=== PATIENT | male | born 1930 | race Caucasian/White ===

== ENCOUNTER 2019-08-08 13:41 | Inpatient (IN) | payer MEDICARE, OTHER ==
[~2019-08-08] VITALS: Ht 175.3 cm; Wt 73.0 kg
--- OUTSIDE RECORDS SUMMARY | 2019-08-08 13:53 | XMS REPORT | Clinical Summary ---
Author Author [facility] Address Unknown Phone Unavailable Care Team Providers Care Residential Tech Name Role Phone Kari Clay DO PCP [phone] Allergies Comments Active Allergy Reactions Severity Noted Date Metoclopramide Hcl 05/19/2018 Medications End Date Status Medication Sig Dispensed Refills Start Date Active omeprazole (PRILOSEC) 10 Take 10 mg by 0 MG capsule mouth daily. Active dilTIAZem (CARDIZEM) 30 Take 30 mg by 0 MG tablet mouth 4 (four) times daily. Active simvastatin (ZOCOR) 40 MG Take 40 mg by 0 tablet mouth nightly. Active predniSONE (DELTASONE) 5 Take 5 mg by 0 MG tablet mouth daily. Active temazepam (RESTORIL) 15 Take 15 mg by 0 mg capsule mouth every night as needed for Sleep. Active traMADol (ULTRAM) 50 mg Take 50 mg by 0 tablet mouth every 6 (six) hours as needed for Pain. Active hydrALAZINE (APRESOLINE) Take 10 mg by 0 10 MG tablet mouth 3 (three) times daily. Active rivaroxaban (XARELTO) 10 Take by mouth 0 mg Tab tablet daily with dinner. Active donepezil (ARICEPT) 10 MG Take 10 mg by 0 tablet mouth nightly. Active bimatoprost (LUMIGAN) Place 1 drop 0 0.01 % Drop ophthalmic into both solution eyes nightly. Active ranitidine (ZANTAC) 75 MG Take 75 mg by 0 tablet mouth 2 (two) times daily. Active Problems Not on file Social History Date Tobacco Use Types Packs/Day Years Used Former Smoker Smokeless Tobacco: Never Used Alcohol Use Drinks/Week oz/Week Comments No Alcohol Habits Answer Date Recorded How often do you have a drink containing alcohol? Never 05/19/2018 How many drinks containing alcohol do you have on No t asked a typical day when you are drinking? How often do you have six or more drinks on one Not asked occasion? Sex Assigned at Date Recorded Not on file Industry Job Start Date Occupation Not on file Not on file Not on file Travel End Travel History Travel Start No recent travel history available. Last Filed Vital Signs Not on file Plan of Treatment Not on file Results Not on fileafter 08/07/2018 Insurance Payer Benefit Subscriber ID Type Phone Address Plan / Group MEDICARE MEDICARE A xxxxxxxxxxx Medicare B [employer] CIGNA xxxxxxxxxxx [facility] Contracted NG ALL [phone]
--- OUTSIDE RECORDS SUMMARY | 2019-08-08 13:54 | XMS REPORT | Continuity of Care Document ---
Author Author [facility] Organization [facility] Address [address] [address] Phone tel Care Team Providers Care Technician [employer]mar[employer] Cable Equipment Name Role Phone NOLOCAL, CARE DOC PRIMARY PCP Unavailable Allergies, Adverse Reactions, Alerts Allergen Type Severity Reaction Last Updated Verified Status Metoclopramide Allergy Moderate TREMORS Yes Activ e Medications Medication Status Dose Units Route Sig Qty Days Start Date End Date Instructions AZITHROMYCIN (AZITHROMYCIN 250 MG TAB) 250 MG TAB Active 250 EVERY DAY @ 0900 3 January 11, 2019 10:18am DONEPEZIL HYDROCHLORIDE (DONEPEZIL 10 MG TAB) 10 MG TAB Active 10 DAILY HOUR OF SLEEP Diltiazem HCl (DILTIAZEM 120 MG TAB (IR)) 120 MG TAB Active 180 EVERY DAY @ 0900 FLUTICASONE PROPIONATE (NASAL) (FLUTICASONE NASAL SPRAY) 50 MCG SPR Active 50 EVERY DAY @ 0900 LEVOFLOXACIN (LEVAQUIN 500 MG TAB) 500 MG TAB Active 500 EVERY DAY @ 0900 5 5 January 11, 2019 10:18am OMEPRAZOLE (OMEPRAZOLE 40 MG CAP) 40 MG CAP Active 40 EVERY DAY @ 0900 Prednisone (PREDNISONE 5 MG TAB) 5 MG TAB Active 5 EVERY D AY @ 0900 QUETIAPINE FUMERATE (QUETIAPINE 25 MG TAB) 25 MG TAB Active 25 AT BEDTIME (2100) Rivaroxaban (XARELTO 15 MG TAB) 15 MG TAB Active 15 DEBORAH RY DAY @ 0900 Simvastatin (ZOCOR 40 MG) 40 MG TAB Active 40 AT BEDTIME (2 100) TIZANIDINE HYDROCHLORIDE (TIZANIDINE 2 MG TAB) 2 MG TAB Active 2 DAILY HOUR OF SLEEP as needed NEEDED FOR MUSCLE SPASMS Temazepam (RESTORIL 15 MG CAPSULE) 15 MG CAP Active 15 AT BEDTIME (2100) Problems Active Problems Medical Problem Onset Date Status Fall against sharp object Active Abrasion of nose Active Fracture of nasal bones Active Cough Active Weakness generalized Active Liver enzyme elevation Active UTI (urinary tract infection) Active RLL pneumonia Active Acute febrile illness Active Vomiting Active Leukocytosis Active Multifocal pneumonia Active Hypoxia Active Respiratory distress Active CHF (congestive heart failure) Active Procedures Procedure Date Performed Status CBCA W/PLT & AUTO DIFFERENTIAL April 11, 2016 completed BNP RAPID April 11, 2016 completed COMPREHENSIVE METABOLIC PANEL April 11, 2016 completed PROTIME April 11, 2016 completed PTT April 11, 2016 completed A1C April 11, 2016 completed AFT, SERUM,TUMOR MARKER* April 11, 2016 completed ALDOLASE* April 11, 2016 completed AMMONIA April 11, 2016 completed AMYLASE April 11, 2016 completed BNP RAPID April 11, 2016 completed CBCA W/PLT & AUTO DIFFERENTIAL April 11, 2016 completed CEA April 11, 2016 completed COLD AGGLUTININ TITER,QUANT April 11, 2016 completed COMPREHENSIVE METABOLIC PANEL April 11, 2016 completed CORTISOL, TOTAL RANDOM April 11, 2016 completed CRP (C-Reactive Protein) April 11, 2016 completed FOLATE,SERUM April 11, 2016 completed FERRITIN April 11, 2016 completed HEPATITIS PANEL.* April 11, 2016 completed IRON April 11, 2016 completed LIPASE April 11, 2016 completed LIPID PANEL April 11, 2016 completed PROTIME April 11, 2016 completed PTT April 11, 2016 completed RETICULOCYTE April 11, 2016 completed STREP PNEUMONIAE AG* April 11, 2016 completed THYROID STIMULATING HORMONE April 11, 2016 completed TOTAL IRON BINDING April 11, 2016 completed SARAHY (Dr. Smith) April 11, 2016 completed CK April 11, 2016 completed BLOOD CULTURE April 12, 2016 completed CBCA W/PLT & AUTO DIFFERENTIAL April 13, 2016 completed COMPREHENSIVE METABOLIC PANEL April 13, 2016 completed COMPREHENSIVE METABOLIC PANEL April 14, 2016 completed CBCA W/PLT & AUTO DIFFERENTIAL April 15, 2016 completed COMPREHENSIVE METABOLIC PANEL April 15, 2016 completed MAGNESIUM April 15, 2016 completed PHOSPHOROUS April 15, 2016 completed PROTIME April 15, 2016 completed COMPREHENSIVE METABOLIC PANEL April 16, 2016 completed CBCA W/PLT & AUTO DIFFERENTIAL January 09, 2019 completed COMPREHENSIVE METABOLIC PANEL January 09, 2019 completed PROTIME January 09, 2019 completed PTT January 09, 2019 completed CARDIAC MARKERS PANEL (ER) January 09, 2019 completed BLOOD CULTURE January 09, 2019 completed BNP RAPID January 09, 2019 completed MAGNESIUM January 09, 2019 completed UA COMPLETE W/CULTURE REFLEX January 09, 2019 completed ARTERIAL BLOOD GASES January 09, 2019 completed BASIC METABOLIC PANEL January 10, 2019 completed CBCA W/PLT & AUTO DIFFERENTIAL January 10, 2019 completed CBCA W/PLT & AUTO DIFFERENTIAL January 11, 2019 completed CHEST 1 VIEW (AP) April 11, [address] ABD & PELVIS W CONTRAST April 11, 2016 active ECHO W SPECTRAL & COLOR DOPLR April 11, [address] CHEST W/O CONTRAST April 11, 2016 active BARIUM SWALLOW MODIFIED April 11, 2016 active L RIBS UNILAT 2 VWS W/PA CXR April 13, 2016 active CHEST 1 VIEW (AP) April 14, 2016 active CHEST 2 VIEWS April 16, 2016 active CHEST 1 VIEW (AP) January 09, 2019 active Relevant Diagnostic Tests and/or Laboratory Data Laboratory Results Test Date/Time Result Interpretation Reference Range Result Co mment Performing Site White Blood Count January 11, 2019 10:52am 10.7 3.8-1 2.1 Main Laboratory, [address] [place] [address] [place] [id number] Red Blood Count January 11, 2019 10:52am 4.47 3.57-5. 67 Main Laboratory, [address] [place] [address] Dr Marshal plasencia [address] Hemoglobin January 11, 2019 10:52am 13.1 11.4-17.1 Main Laboratory, [address] [place] [address] [place] [address] Hematocrit January 11, 2019 10:52am 40.5 33.9-50.9 Main Laboratory, [address] [place] [address] Dr Marshal plasencia 60247 Mean Corpuscular Volume January 11, 2019 10:52am 90.6 81.4-102.7 Main Laboratory, [address] [place] [address] Dr Marshal plasencia 02329 Mean Corpuscular Hemoglobin January 11, 2019 10:52am 29.3 26.3-35.0 Main Laboratory, [address] [place] [address] [place] [address] Mean Corpuscular Hgb Concent Diff January 11, 2019 10:52am 32.3 32.0-36.0 Main Laboratory, [address] [place] [address] [place] [address] Red Cell Distribution Width January 11, 2019 10:52am 14.8 11.8-16.2 Main Laboratory, [address] [place] [address] [place] [address] Platelet Count January 11, 2019 10:52am 168 124-384 Main Laboratory, [address] [place] [address] [place] [address] Mean Platelet Volume January 11, 2019 10:52am 9.5 6. 6-10.2 Main Laboratory, [address] [place] [address] [place] [address] Granulocytes (%) January 11, 2019 10:52am 74.4 39.5-7 8.1 Main Laboratory, [address] [place] [address] [place] [address] Lymphocytes % January 11, 2019 10:52am 10.6 12.3-46.4 Main Laboratory, [address] [place] [address] [place] [address] Monocytes % January 11, 2019 10:52am 6.4 4.6-14.0 Main Laboratory, [address] [place] [address] [place] [address] Eosinophils % January 11, 2019 10:52am 7.9 0.6-8.8 Main Laboratory, [address] [place] [address] [place] [address] Basophils % January 11, 2019 10:52am 0.7 0.0-2.0 Main Laboratory, [address] [place] [address] [place] [address] Granulocytes # January 11, 2019 10:52am 8.0 1.5-9.5 Main Laboratory, [address] [place] [address] [place] [address] Lymphocytes # January 11, 2019 10:52am 1.1 0.5-5.6 Main Laboratory, [address] [place] [address] [place] [address] Monocytes # January 11, 2019 10:52am 0.7 0.2-1.7 Main Laboratory, [address] [place] [address] [place] [address] Eosinophils # January 11, 2019 10:52am 0.8 0.0-1.1 Main Laboratory, [address] [place] [address] [place] [address] Basophils # January 11, 2019 10:52am 0.1 0.0-0.2 Main Laboratory, [address] [place] [address] [place] [address] Manual Differential January 11, 2019 10:52am NO Main Laboratory, [address] [place] [address] Dr Marshal plasencia 22874 Segmented Neutrophils April 13, 2016 6:31am 93 42 -75 Main Laboratory, [address] [place] [address] Dr Marshal plasencia 80182 Lymphocytes April 13, 2016 6:31am 5 20-51 Main Laboratory, [address] [place] [address] Dr Marshal plasencia 56943 Monocytes April 13, 2016 6:31am 2 2-9 Main Laboratory, [address] [place] [address] Dr Marshal plasencia 39596 Platelet Estimate April 13, 2016 6:31am ADEQUATE ADEQUA TE Main Laboratory, [address] [place] [address] Dr Marshal plasencia 81452 Platelet Morphology April 13, 2016 6:31am NORMAL NORM AL Main Laboratory, [address] [place] [address] Dr Marshal plasencia 99954 Normal RBC Morphology April 13, 2016 6:31am NORMAL NO RMAL Main Laboratory, [address] [place] [address] [place] [address] Reticulocyte Count April 12, 2016 12:11am 3.4 0.52 -3.53 Main Laboratory, [address] [place] [address] Dr Marshal plasencia 37542 Total Iron Binding Capacity April 12, 2016 12:11am 273 261-478 Main Laboratory, [address] [place] [address] [place] [address] Prothrombin Time January 09, 2019 5:00am 19.2 10.0-12 .9 Main Laboratory, [address] [place] [address] [place] [address] INR International Normalized Ratio January 09, 2019 5:00am 1.7 0.91-1.15 THE INR IS TO BE USED ONLY FOR MONITORING ORAL ANTICOAGULANTTHERAPY. INDICATION INR VALUE 1. Prophylaxis of venous thrombosis 2.0-3.0 (high-risk surgery) Treatment of venous thrombosis Treatment of PE Prevention of systemic embolism Tissue heart valves AMI (to prevent systemic embolism) Valvular heart disease Atrial fibrillation Bileaflet mechanical valve in aortic position 2. Mechanical prosthetic heart valves (high risk) 2.5-3.5 Thrombosis and Antiphospholipid syndrome Prevention of recurrent MS Sixth ACCP Consensus Conference on Antithrombotic Therapy,Chest 2001; 119:Supplement 8-21. Main Laboratory, [address] [place] [address] [place] [address] Activated Partial Thromboplast Time January 09, 2019 5:00am 28.2 25.1-36.5 Main Laboratory, [address] [place] [address] [place] [address] Urine Color January 09, 2019 5:37am Colorless YELLOW Main Laboratory, [address] [place] [address] Dr Marshal plasencia 26137 Urine Clarity January 09, 2019 5:37am Clear CLEAR Main Laboratory, [address] [place] [address] [place] [address] Urine Glucose January 09, 2019 5:37am NEGATIVE NEGATIVE Main Laboratory, [address] [place] [address] [place] [address] Urine Bilirubin January 09, 2019 5:37am NEGATIVE NEGATIVE Main Laboratory, [address] [place] [address] [place] [address] Urine Ketones January 09, 2019 5:37am NEGATIVE NEGATIVE Main Laboratory, [address] [place] [address] [place] [address] Urine Specific Conway January 09, 2019 5:37am 1.006 1 .002-1.030 Main Laboratory, [address] [place] [address] [place] [address] Urine Blood January 09, 2019 5:37am LARGE NEGATIVE Main Laboratory, [address] [place] [address] [place] [address] Urine pH January 09, 2019 5:37am 5 5.0-8.0 Main Laboratory, [address] [place] [address] [place] [address] Urine Protein January 09, 2019 5:37am NEGATIVE NEGATIVE Main Laboratory, [address] [place] [address] [place] [address] Urine Urobilinogen January 09, 2019 5:37am NEGATIVE NEGAT CARA Main Laboratory, [address] [place] [address] [place] [address] Urine Nitrite January 09, 2019 5:37am NEGATIVE NEGATIVE Main Laboratory, [address] [place] [address] [place] [address] Urine Leukocyte Esterase January 09, 2019 5:37am NEGATIVE NEGATIVE Main Laboratory, [address] [place] [address] [place] [address] Urine RBC January 09, 2019 5:37am 51-99 0-2 Main Laboratory, [address] [place] [address] [place] [address] Urine WBC January 09, 2019 5:37am 3-5 0-5 Main Laboratory, [address] [place] [address] [place] [address] Urine Squamous Epithelial Cells January 09, 2019 5:37am 0-2 0-5 Main Laboratory, [address] [place] [address] [place] [address] Urine Hyaline Casts January 09, 2019 5:37am 3-5 0-2 Main Laboratory, [address] [place] [address] [place] [address] Urine Calcium Oxalate Crystals January 09, 2019 5:37am RARE NEGATIVE Main Laboratory, [address] [place] [address] [place] [address] Arterial Blood pH January 09, 2019 7:25am 7.420 7.350- 7.450 Main Laboratory, [address] [place] [address] Dr Marshal plasencia 53835 Arterial Blood pCO2 at Patient Temp January 09, 2019 7:25am 40.5 32.0-48.0 Main Laboratory, [address] [place] [address] [place] [address] Blood Gas HCO3 January 09, 2019 7:25am 25.5 21.0-28.0 Main Laboratory, [address] [place] [address] Dr Marshal plasencia 12785 Arterial Blood Total CO2 January 09, 2019 7:25am 22.7 23.0-30.0 Main Laboratory, [address] [place] [address] Dr Marshal plasencia 47988 Blood Gas Base Excess January 09, 2019 7:25am 1.4 -3 .0-3.0 Main Laboratory, [address] [place] [address] Dr Marshal plasencia 01218 Blood Gas PO2 January 09, 2019 7:25am 103.0 83.0-108.0 Main Laboratory, [address] [place] [address] Dr Marshal plasencia 39526 Arterial Bld O2 Saturation (Measur) January 09, 2019 7:25am 98.8 95.0-99.0 Main Laboratory, [address] [place] [address] ella plasencia 10851 Grayson Test January 09, 2019 7:25am YES Main Laboratory, [address] [place] [address] Dr Marshal plasencia 29939 Blood Gas Puncture Site January 09, 2019 7:25am RIGHT BRACHIAL Main Laboratory, [address] [place] [address] Dr Marshal plasencia 22994 Serum Folate April 12, 2016 12:11am > 23.70 6.59-20.00 Main Laboratory, [address] [place] [address] Dr Marshal plasencia 50167 Transferrin April 12, 2016 12:11am 195 180-329 Main Laboratory, [address] [place] [address] Dr Marshal plasencia 30304 Total Cortisol April 12, 2016 12:11am 14.04 6.70-22. 60 Main Laboratory, [address] [place] [address] Dr Marshal plasencia 61218 N/A April 12, 2016 12:11am CALCULATE BELOW CORONARY HEART DISEASE (CHD) RISK FACTORS: +1, Age (y): Men, >45 Women, >55 or Premature Menopause Without Estrogen Therapy +1, Family History of Premature CHD +1, Current Cigarette Smoking +1, Hypertension +1, Low HDL-C: <40 mg/dL -1, High HDL-C: 60 mg/dL or More Total RFs CHD Risk Equivalents (REq): Diabetes Other Forms of Atherosclerotic Disease Lipid testing of hospitalized patients may be inaccurate dueto fluctuations from the patients normal metabolic state. Accurate triglyceride and LDL testing requires a fastingspecimen. If non-fasting cholesterol > or = 200 mg/dL orHDL is < 40 mg/dL, fasting lipid panel is recommended.Repeat testing recommended prior to treatment. Desirable Levels Main Laboratory, [address] [place] [address] Dr Marshal plasencia 19104 Cholesterol Level April 12, 2016 12:11am 94 0-200 Main Laboratory, [address] [place] [address] Dr Marshal plasencia 01528 Triglycerides Level April 12, 2016 12:11am 54 10-150 Normal triglycerides: <150 mg/dLBorderline-high triglycerides: 150-199 mg/dLHigh triglycerides: 200-499 mg/dLVery high triglycerides: > or = 500 mg/dL Main Laboratory, [address] [place] [address] Dr Marshal plasencia 12211 HDL Cholesterol April 12, 2016 12:11am 24 40-130 Main Laboratory, [address] [place] [address] Dr Marshal plasencia 86178 N/A April 12, 2016 12:11am 3.9 0.0-5.0 Main Laboratory, [address] [place] [address] Dr Marshal plasencia 76007 LDL Cholesterol (Measured) April 12, 2016 12:11am 50 0-130 *LDL Cholesterol <130 mg/dL, No CHD or CHD Risk Equivalent <100 mg/dL, With CHD or CHD Risk Equivalent LDL Cholesterol Therapeutic Goal:100 mg/dL or Less if CHD or CHD Risk Equivalent Present<130 mg/dL if No CHD or REq; 2 or more Risk Factors<160 mg/dL if No CHD or REq; 0-1 Risk Factors Reference: ATP III, JOSÉ, 285:19, 9172-68, 2001. Main Laboratory, [address] [place] [address] [place] [address] Sodium Level January 10, 2019 3:53am 140 135-144 Main Laboratory, [address] [place] [address] [place] [address] Potassium Level January 10, 2019 3:53am 3.8 3.5-5.1 Main Laboratory, [address] [place] [address] [place] [address] Chloride Level January 10, 2019 3:53am 106 101-111 Main Laboratory, [address] [place] [address] [place] [address] Carbon Dioxide Level January 10, 2019 3:53am 26 22- 32 Main Laboratory, [address] [place] [address] [place] [address] Anion Gap January 10, 2019 3:53am 11.8 10-20 Main Laboratory, [address] [place] [address] [place] [address] Glucose Level January 10, 2019 3:53am 116 65-99 Prediabetes 100 to 125 mg/dlDiabetes 126 mg/dl or higher Prediabetes refers to individuals with plasma glucose levelsintermediate between those considered normal and thoseconsidered diabetic and is also referred to as impairedglucose tolerance (IGT) or impaired fasting glucose (IFG). Main Laboratory, [address] [place] [address] [place] [address] Blood Urea Nitrogen January 10, 2019 3:53am 20 8-26 Main Laboratory, [address] [place] [address] [place] [address] Creatinine January 10, 2019 3:53am 1.0 0.61-1.24 Main Laboratory, [address] [place] [address] [place] [address] EGFR Note January 10, 2019 3:53am 85.0 59.3-175.8 eGFR (Estimated Glomerular Filtration Rate) eGFR calculation value obtained using the [facility]'S Medical CenterQuadratic (Q) equation. The reportable reference range isrecommended to be greater than 60 ml/min/1.73m. This is anestimation of the patient's GFR and clinical correlation isrecommended. This eGFR calculation does not account for race. This resultmay differ from other equations available. Main Laboratory, [address] [place] [address] Dr Marshal plasencia 78256 Calcium Level January 10, 2019 3:53am 9.5 8.9-10.3 Main Laboratory, [address] [place] [address] Dr Marshal plasencia 25258 Phosphorus Level April 15, 2016 5:37am 2.2 2.5-4.6 Main Laboratory, [address] [place] [address] Dr Marshal plasencia 76849 Magnesium Level January 09, 2019 5:00am 1.9 1.8-2.5 Main Laboratory, [address] [place] [address] Dr Marshal plasencia 77833 Albumin January 09, 2019 5:00am 3.7 3.5-5.0 Main Laboratory, [address] [place] [address] Dr Marshal plasencia 14603 Total Bilirubin January 09, 2019 5:00am 0.3 0.2-1.2 Main Laboratory, [address] [place] [address] Dr Marshal plasencia 47244 Alkaline Phosphatase January 09, 2019 5:00am 57 32- 91 Main Laboratory, [address] [place] [address] Dr Marshal plasencia 00792 Total Protein January 09, 2019 5:00am 7.1 6.5-8.1 Main Laboratory, [address] [place] [address] Dr Marshal plasencia 99619 Alanine Aminotransferase (ALT/SGPT) January 09, 2019 5:00am 19 7-55 Main Laboratory, [address] [place] [address] Dr Marshal plasencia 91644 Aspartate Amino Transf (AST/SGOT) January 09, 2019 5:00am 25 15-41 Main Laboratory, [address] [place] [address] Dr Marshal plasencia 87632 Globulin January 09, 2019 5:00am 3.4 2.3-3.5 Main Laboratory, [address] [place] [address] Dr Marshal plasencia 43173 Albumin/Globulin Ratio January 09, 2019 5:00am 1.1 1 .2-2.2 Main Laboratory, [address] [place] [address] Dr Marshal plasencia 50886 Amylase Level April 12, 2016 12:11am 54 36-128 Main Laboratory, [address] [place] [address] Dr Marshal plasencia 57211 Lipase April 12, 2016 12:11am 25 22-51 Main Laboratory, [address] [place] [address] Dr Marshal plasencia 45187 Creatine Kinase January 09, 2019 5:00am 42 49-397 Main Laboratory, [address] [place] [address] Dr Marshal plasencia 47255 Creatine Kinase MB January 09, 2019 5:00am 1.62 0.6-6 .3 Main Laboratory, [address] [place] [address] Dr Marshal plasencia 42209 Troponin I January 09, 2019 5:00am < 0.01 0.00-0.03 Troponin I- Interpretation Reference : <0.03 ng/mL NEGATIVE 0.04 - 0.49 ng/mL EQUIVOCAL = OR > 0.5 ng/mL CONSISTENT WITH ACUTE MYOCARDIAL INJURY 98% of confirmed AMI patients will have at least one valuein a set or serial specimens >0.50 ng/ml. 99% of normals are between 0.0 - 0.10 ng/ml. Serial samples on a patient that are all <0.10 ng/mleffectively rules out AMI. Persistently increased troponin I values that are above theupper limit of normal but below the threshold for AMIindicate mycardial injury but not necessarily an ischemicmechanism of injury. Troponin Important Points 1. Troponin is specific for myocardial injury but not forAMI. Elevated troponin levels above the upper limit ofnormal but below the AMI cutoff may be present in cardiacinjury other then AMI and represent some degree of risk. 2. Elevated troponin levels inconsistent with patienthistory or clinical condition should be considered a sign toinvestigate for other cardiac conditions. 3. Serial sampling is critical for accurate diagnosis. Main Laboratory, [address] [place] [address] Dr Marshal plasencia 68313 Myoglobin January 09, 2019 5:00am 24 17.4-106.0 Main Laboratory, [address] [place] [address] Dr Marshal plasencia 84137 Creatine Kinase April 12, 2016 12:11am 24 49-397 Main Laboratory, [address] [place] [address] Dr Marshal plasencia 14838 Ammonia April 12, 2016 12:11am 25 11-35 Main Laboratory, [address] [place] [address] Dr Marshal plasencia 37372 B-Type Natriuretic Peptide April 12, 2016 12:11am 203 0-100 Main Laboratory, [address] [place] [address] Dr Marshal plasencia 64844 B-Type Natriuretic Peptide January 09, 2019 5:00am 33 0-100 Main Laboratory, [address] [place] [address] Dr Marshal plasencia 85705 C-Reactive Protein April 12, 2016 12:11am 19.3 0.0- 1.0 Main Laboratory, [address] [place] [address] Dr Marshal plasencia 29918 Iron Level April 12, 2016 12:11am 17 45-182 Main Laboratory, [address] [place] [address] [place] [address] Ferritin April 12, 2016 12:11am 256.2 11-306.8 Main Laboratory, [address] [place] [address] [place] [address] Hemoglobin A1c Percent April 12, 2016 12:11am 5.7 4.0-6.0 Elevated levels of HbA1c suggest the need for moreaggresssive treatment of glycemia. The [place] [employer] recommends that a primary goal of therapyshould be a HbA1c of <7% and that physicians shouldreevaluate the treatment regimen in patients with [id number] consistently >8%. Main Laboratory, [address] [place] [address] [place] [address] N/A April 12, 2016 12:11am 116 A1C Result% Estimated Avg.Glucose (EAG) 6.0% 126 mg/dL 6.5% 140 mg/dL 7.0% 154 mg/dL 7.5% 169 mg/dL 8.0% 183 mg/dL 8.5% 197 mg/dL 9.0% 212 mg/dL 9.5% 226 mg/dL 10.0% 240 mg/dL Reference: zakia Chapman al, Diabetes Care 31: 1437, 2008. Main Laboratory, [address] [place] [address] Thyroid Stimulating Hormone (TSH) April 12, 2016 12:11am 0.15 0.34-5.6 Main Laboratory, [address] [place] [address] [place] [address] Aldolase April 12, 2016 12:11am 10.0 3.3-10.3 [facility][id number], [address] [facility] [address] Carcinoembryonic Antigen April 12, 2016 12:11am 0.7 0.0-4.7 Rebecca ECLIA methodology Nonsmokers <3.9 Smokers <5.6 [facility] #[id number], [address] [facility] [address] Tumor Marker Alpha Fetoprotein April 12, 2016 12:11am 1.7 0.0-8.3 Rebecca ECLIA methodology [facility] #[id number], [id number] [facility] [address] Cold Agglutinin Titer April 12, 2016 12:11am Negative N eg <1:32 [facility] #[id number], [address] [facility] [address] Streptococcus pneumoniae Ag Interp April 12, 2016 12:11am Negat cara Negative Performed at: [facility] [id number] Director: Enoch Ng MD, Phone: [phone] at: - [facility] [id number] Director: Orlando Toblert MD, Phone: [phone] [facility] #[id number], [id number] [place] [address] Hepatitis A IgM Antibody April 12, 2016 12:11am Negative Negative [facility] #[id number], [address] [facility] [address] Hepatitis B Surface Antigen April 12, 2016 12:11am Negative Negative [facility] #[id number], [id number] [place] [address]263 Hepatitis B Core IgM Antibody April 12, 2016 12:11am Negative Negative [facility] #[id number], [address] [facility] [place] [address] Hepatitis C Antibody April 12, 2016 12:11am <0.1 0.0-0.9 INFCE Result Units: s/co ratio Negative: < 0.8 Indeterminate: 0.8 - 0.9 Positive: > 0.9 The [facility] recommends that a positive HCV antibody result be followed up with a HCV Nucleic Acid Amplification test ([id number]). [facility] #[id number], [id number] [facility] [address] Anti-Nuclear Antibody Profile April 11, 2016 12:19am SEE COMMENT Ordered ItemsANA+ANDREY+DNA/DS+Antich+Centr... TESTS RESULT FLAG UNITS REFERENCE INTERVALANA+ANDREY+DNA/DS+Antich+Centr...Antinuclear Antibodies, IFA Negative Negative <1:80 Borderline 1:80 Positive >1:80 Anti-DNA (DS) Ab Qn 1 IU/mL 0 - 9 Negative <5 Equivocal 5 - 9 Positive >9 TOOL ENGINE LATHE SET UP OPERATOR Antibodies <0.2 AI 0.0 - 0.9 Izaguirre Antibodies <0.2 AI 0.0 - 0.9 Izaguirre/TOOL ENGINE LATHE SET UP OPERATOR Antibodies <0.2 AI 0.0 - 0.9Antiscleroderma-70 Antibodies <0.2 AI 0.0 - 0.9 Sjogren's Anti-SS-A <0.2 AI 0.0 - 0.9 Sjogren's Anti-SS-B <0.2 AI 0.0 - 0.9 Antichromatin Antibodies 0.2 AI 0.0 - 0.9 Antiribosomal P Antibodies <0.2 AI 0.0 - 0.9 Anti-Genevieve-1 <0.2 AI 0.0 - 0.9 Anti-Centromere B Antibodies <0.2 AI 0.0 - 0.9 See below: Autoantibody Disease Association Condition Frequency Antinuclear Antibody, SLE, mixed connective Direct (SARAHY-D) tissue diseases dsDNA SLE 40 - 60% Chromatin Drug induced SLE 90% SLE 48 - 97% SSA (Ro) SLE 25 - 35% Sjogren's Syndrome 40 - 70% Lupus 100% SSB (La) SLE 10% Sjogren's Syndrome 30% Sm (anti-Izaguirre) SLE 15 - 30% TOOL ENGINE LATHE SET UP OPERATOR Mixed Connective Tissue Disease 95% (U1 nRNP, SLE 30 - 50% anti-ribonucleoprotein) Polymyositis and/or Dermatomyositis 20% Scl-70 (antiDNA Scleroderma (diffuse) 20 - 35% topoisomerase) Crest 13% Genevieve-1 Polymyositis and/or Dermatomyositis 20 - 40% Centromere B Scleroderma - Crest variant 80% Ribosomal P SLE 10 - 20% 01 [facility] [place] [address] [place] [address]Lmo: Enoch Ng MDFor inquiries, the physician may contact Branch:[phone] Lab: [phone] Main Laboratory, [address] [place] [address] Microbiology Results Procedure Source Result Collection Date/Time Result Date/Time Re sult Comment Performing Site Blood Culture IV-LINE NO GROWTH AT 5 DAYS. January 09, 2019 5:22am January 14, 2019 6:14am Main Laboratory, [address] [place] [address] [place] [address] Diagnostic Imaging Reports Report Dictated Date/Time Dictated By Status HISTORY AND PHYSICAL April 11, 2016 11:37pm PRETTY GEE completed [facility] HISTORY PHYSICAL Juan Priest ADM: 04/11/2016 M.R.#: [id number] ATTENDING PHYSICIAN: Pretty Gee M.D. REASON FOR ADMISSION: Juan Priest is a very pleasant 86-year-old gentleman who was admitted to the hospital because of having this persistent cough and increasing weakness. HISTORY OF PRESENT ILLNESS: This is an 86-year-old gentleman with past medical history significant for having a history of hypertension, hyperlipidemia, has dementia, has been known to have congestive heart failure, atrial fibrillation, and is on anticoagulation. Has been noticing that for the last 2 months he suddenly has been coughing quite a bit. He went to see his primary care physician, Dr. Kari Clay, who was concerned that this gentleman had previous history of having significant reflux disease and esophageal strictures, sent him to Dr. Turcios, who evaluated him and felt like this patient's GI issues were not the source of this cough. As a result, the patient was about to go back to the primary care physician when he just progressively got so weak and coughing so much that his family brought him to the emergency room. PAST MEDICAL HISTORY: As I just mentioned above, significant for having these above problems. No history of diabetes, no history of any heart attacks. SURGICAL HISTORY: Significant for having an abdominal aortic aneurysm repaired 20-plus years ago. ALLERGIES: He is allergic to Reglan. SOCIAL HISTORY: He used to smoke, started from age 19 until 1985, so quit 30 years ago. Does not drink. FAMILY HISTORY: Significant for no serious medical problems. REVIEW OF SYSTEMS: Remarkable for having a case of double pneumonia about 6 months ago, and at that time lost 30 pounds; has gained about 10 pounds back. Other than that, he has had difficulty with his sleeping secondary to cough and has been having some change in bowel habits lately. PHYSICAL EXAMINATION: VITAL SIGNS: Currently stable. HEENT: No icterus. There is no pallor. NECK: There is a JVP. LUNGS: Bilateral crackles, which seem to be Velcro rales. ABDOMEN: Soft. There is no tenderness. EXTREMITIES: No edema. LABORATORIES: Fairly remarkable, with a white count slightly elevated (he is on prednisone, as he has fibromya lgia too), hemoglobin and hematocrit slightly reduced, platelets are normal. Coagulation profile shows an INR of 1.8. Chemistries are fairly unremarkable, BUN and creatinine unremarkable, random blood sugar a little bit elevated. AST and ALT have been elevated. That was not there in July 2015. AST is around 470 and ALT is around 470 also. His chest x-ray shows chronic lung disease, which is concerning for the possibility of either COPD or interstitial lung disease. ASSESSMENT AND PLAN: Patient with cough that has been chronic, but has profound weakness. Looking at his chest x-ray, looking at his lab evaluations and at his presentation, I am concerned that he may have methotrexate-induced drug toxicity with interstitial lung disease as well as hepatitis. I will get a CT of the abdomen and pelvis to make sure that is not the case, as I want to make sure that pancreatic malignancy is not a part of this picture. We will get some tumor markers also, but I will definitely look for methotrexate as it may be the cause of it. We will check an SARAHY pattern with antihistones, as that may be elevated in medication-induced chronic lung changes. We will get Dr. Polanco also to evaluate the patient too. He may eventually need ether a liver biopsy or lung biopsy to prove his case. We will put him on steroids, nebulizers, mucolytics, etc. I will hold off on any antibiotics, as my suspicion for infection is very low; it is possible that he may have some MAC-like infection, but I doubt that would be the case. We will wait for Dr. Polanco's evaluation of the same. We will get a CT, which would be a high-resolution CT, to see whether . In the meantime, it is possible that he may have reflux-associated chronic aspiration-induced interstitial disease. We will get a modified barium swallow to better assess that. I doubt that he will need an endoscopy at this point of time. We will resume his home medications and make sure that there is no other malignancy which may be the cause, as he has had a recent change in bowel habits and fibromyalgia can sometimes be associated with malignancy. If all of this workup comes out negative, he may need to have a colonoscopy for the same. This was explained in detail to the patient's family, who understand that and have no questions. The gentleman does have underlying dementia too, and he has been put on medication for the same. His PCP is Dr. Kari Clay. /DAVID/C0272 Pretty Gee M.D. HISTORY PHYSICAL DATE: TIME: /DTJosselyn C0272 #[id number] cc: Kari Clay DO Report Dictated By: PRETTY GEE Report Signed By: PRETTY GEE 04/12/16 2151 <<Signature on File>> Report Cosigned By: PROGRESS NOTE April 12, 2016 3:03pm MORGAN ROBERTSON [facility] PROGRESS NOTE Juan Maury Zayda DATE: 04/12/2016 Kana#: [id number] [id number] CHIEF COMPLAINT: Follow up progressive cough and increasing weakness. HISTORY OF PRESENT ILLNESS: This is an 86-year-old gentleman admitted by Dr. Gee. See his dictated H and P for details. Patient has been having cough and chest congestion. He had a CT scan which shows at least 2 areas of consolidation, and he had a bronchogram suggestive of pneumonia. He has consolidation of the left lower lobe and a patchy area of ground glass opacity seen within the right upper lobe. Patient also seems to have changes of interstitial lung disease as well. Patient has been on methotrexate. Patient is feeling fairly well at this time. Has a continued cough, not severe at this time. PHYSICAL EXAMINATION: VITAL SIGNS: Temperature 97, pulse 68, respirations 18, blood pressure 141/69, oxygen saturation 97% on 2L. HEENT: No jaundice. CHEST: Coarse breath sounds especially at bases. Scattered rhonchi. No wheezing. HEART: S1, S2 normal. Regular rate. ABDOMEN: Soft, nondistended. EXTREMITIES: No edema. LABORATORY DATA: WBC count 12.5, hemoglobin 8.6, platelets 133. Sodium 131, potassium 3.9, BUN is 33, creatinine is 1.3. ASSESSMENT AND PLAN: 1. Pneumonia. Patient has been start ed on Levaquin. He has also been on nebulizer treatments and supplemental oxygen. 2. Interstitial lung disease. There is a question of methotrexate toxicity. Dr. Polanco has been consulted. Patient will be continued on steroids. 3. Gastroesophageal reflux disease pr ophylaxis. Continue Protonix. 4. Chronic anticoagulation. Continue Eliquis. LETI/DAVID/C0179 Morgan Robertson M.D. PROGRESS NOTE DATE: TIME: /DTS C0179 #[id number] Report Dictated By: MORGAN ROBERTSON Report Signed By: MORGAN ROBERTSON 04/13/16 1248 <<Signature on File>> Report Cosigned By: PROGRESS NOTE April 12, 2016 3:14pm MORGAN ROBERTSON [facility] PROGRESS NOTE Juan Priest DATE: 04/12/2016 Kana#: [id number] ADDENDUM: Please add following at end of the note as an addendum. As far as interstitial lung disease and its causation is concerned, methotrexate is a possibility which was discussed above and also amiodarone chronic toxicity should also be taken into account. LETI/LEATHAS/C0400 Morgan Robertson M.D. PROGRESS NOTE DATE: TIME: /DTS C0400 #[id number] Report Dictated By: MORGAN ROBERTSON Report Signed By: MORGAN ROBERTSON 04/13/16 1248 <<Signature on File>> Report Cosigned By: CONSULTATION April 13, 2016 12:22pm KALI POLANCO eted [facility] CONSULTATION Juan Priest DATE: 04/13/2016 Kana#: [id number] [facility] [id number] REFERRING PHYSICIAN: Pretty Gee M.D. REASON FOR CONSULTATION: Pneumonia, drug-induced pulmonary toxicity. HISTORY OF PRESENT ILLNESS: Patient is a very pleasant 86-year-old gentleman who presented to the hospital with known history of atrial fibrillation diagnosed about 1 year ago. Has been on treatment with amiodarone. Also longstanding history of polymyalgia rheumatica on treatment with 7.5 mg every week of methotrexate, followed up by Dr. Jorge Lux. He does have some degree of dementia noted as well. Patient, for the last several months, has been coughing, but it is getting progressively worse. He has failed mjrk-phj-lgxpbgb treatment. There was also some previous acid reflux, and he has been seen and evaluated for GI issues. The patient's cough got to the point that he had to be brought into the emergency room. While in here with antibiotic steroids, he feels the cough is better. He is not on any supplemental oxygen and denies shortness of breath, but as per his family member, he does seem to be short of breath on walking distances in the house. He also has a 15-pound weight loss noted in the last 1 year. He denies any nausea, vomiting, abdominal pain. Denies any problem with dysphagia or lower extremity edema. Further review of all systems completed. No abnormalities seen. PAST MEDICAL HISTORY: Congestive heart failure, atrial fibrillation, polymyalgia rheumatica, chronic therapy with amiodarone, chronic methotrexate therapy. PAST SURGICAL HISTORY: Abdominal aortic aneurysm. ALLERGIES: Reglan. SOCIAL HISTORY: Previous smoking. Quit more than 30 years ago. FAMILY HISTORY: No heart or lung problems is reported as such. PHYSICAL EXAMINATION: VITAL SIGNS: He is afebrile, blood pressure 159/74, pulse 70, respiratory rate 18, O2 saturation 97% on 2L oxygen. GENERAL: He is not in significant distress. He answers questions appropriately. His mood and affect are appropriate. HEENT: His head exam is atraumatic, normocephalic. Pupils are equal, round, reactive to light and accommodation. No scleral icterus or conjunctival congestion is noted. His mouth shows no oral thrush or oropharyngeal erythema. NECK: No lymphadenopathy. Trachea is midline. No thyroid enlargement is noted. CHEST: Good air entry with bilateral bibasilar crepitations, more on the left than compared to the right. No obvious wheezing is heard. HEART: S1, S2 normal. No murmurs or rubs noted. ABDOMEN: Soft, benign, nontender, without guarding, rigidity, masses, or hernias. EXTREMITIES: No cyanosis, no clubbing, or edema. SKIN: No other skin rashes, nodules are seen or felt. LABORATORY: CT chest was reviewed by me. There seems to be some subpleural interstitial changes noted bilaterally. They are worse towards the bases. A focal infiltrate in the left base is noted, which could be suspicious for pneumonia, although I do not see much bronchogram fluid. There is some interstitial thickening noted on the bilateral pulmonary parenchyma. Also on a noncontrast study, the liver does seem to be quite hyperdense, raising concern for some amiodarone toxicity on the patient. His LFTs are actually elevated. SGOT is 603 and SGPT is 718. His INR was 5.0 here. Blood cultures have been done on the patient. So far they are negative. ASSESSMENT AND PLAN: An 86-year-old male with previous history of smoking. Presented to the hospital with ongoing persistent cough as a primary symptom. Noted to have some degree of mild hypoxemia, also with significant transaminitis. He has been on 2 medications which can have potential hepatotoxicity and pulmonary toxicity, which would be amiodarone and methotrexate. Amiodarone is more concerning as the liver seems to be quite hyperdense on a noncontrast study, raising concern for amiodarone toxicity. I would recommend to discontinue amiodarone as well, and consult his well digger, Dr. Reddy, for alternative medication. Outpatient PFTs would be beneficial as well. He is on some prednisone, and we will continue on some steroids. I will put him on oral prednisone to look for a clinical response. Keep him on antibiotic for possibility of a community-acquired pneumonia here, but high likelihood of drug-induced toxicity seems to be present. Thank you Dr. Gee. /DTJosselyn/C0240 Kali Polanco M.D. CONSULTATION DATE: TIME: /DTJosselyn C0240 #[id number] cc: Pretty Gee M.D. Report Dictated By: KALI POLANCO Report Signed By: KALI POLANCO 04/17/16 1418 <<Signature on File>> Report Cosigned By: PROGRESS NOTE April 13, 2016 3:06pm TYRA FLORES compl eted [facility] PROGRESS NOTE Juan Priest DATE: 04/13/2016 M.R.#: [id number] SUBJECTIVE: Patient is actually resting comfortably. States he is still having the cough, still short of breath, but it is a little better. OBJECTIVE: VITALS: Temperature afebrile, heart rate 68, respirations 18, blood pressure 127/60, O2 saturation 98%. GENERAL: Patient in no apparent distress. HEENT: PERRLA. NECK: Supple. CARDIOVASCULAR: Regular rate and rhythm. LUNGS: Coarse bilaterally. ABDOMEN: Soft. EXTREMITIES: No edema. LABORATORY: White count 14, hemoglobin 11, platelets normal. Basic metabolic panel stable. LFTs show abnormality with AST being 603, ALT being 718. ASSESSMENT AND PLAN: 1. Pneumonia. Patient responding wel l to the treatment. Dr. Polanco is following. Continue with pulmonary toilet and IV antibiotic therapy with Levaquin empirically. 2. Interstitial lung disease. Patien t will need formal evaluation outpatient with parts specialist. His methotrexate and amiodarone have been on hold. 3. Transaminitis. Unclear exactly wh y patient's LFTs are elevated including the AST and ALT, but bilirubin remains normal. We will check gallbladder ultrasound and recheck his LFTs tomorrow. Hepatitis panel is pending. 4. Atrial fibrillation. Heart rate s table, well controlled on anticoagulation. SP/DTS/C0151 Tyra Flores M.D. PROGRESS NOTE DATE: TIME: /DTS C0151 #[id number] Report Dictated By: TYRA FLORES Report Signed By: TYRA FLORES 04/20/16 0926 <<Signature on File>> Report Cosigned By: PROGRESS NOTE April 14, 2016 2:46pm SANDRATYRA MCKENZIE eted [facility] PROGRESS NOTE Juan Priest DATE: 04/14/2016 M.R.#: [id number] SUBJECTIVE: Patient is actually doing well. He states he is feeling a lot better,and he wants to go home, but is a little concerned about his liver enzymes. OBJECTIVE: VITALS: Temperature afebrile, heart rate 68, respirations 18, blood pressure 130/60, O2 saturation 98%. GENERAL: Patient in no apparent distress. HEENT: PERRLA. NECK: Supple. CARDIOVASCULAR: Regular rate and rhythm. LUNGS: Clear. ABDOMEN: Soft. EXTREMITIES: No edema. LABORATORY: Basic metabolic panel stable. Total bilirubin is normal at 0.7. AST is elevated at 746 and ALT elevated at 956, all worse compared to yesterday. Alkaline phosphatase is elevated at 92. Chest x-ray stable. ASSESSMENT AND PLAN: 1. Pneumonia. Patient's pneumonia is actually better. Continue on the empiric Levaquin, actually improved. 2. Interstitial lung disease, stable. Will need formal outpatient evaluation. We were concerned about methotrexate and amiodarone toxicity. 3. Transaminitis. AST and ALT are co ntinuing to climb. I am concerned about this. Cannot send the patient home as it continues to rise, and we are going to recheck it again tomorrow. Hepatitis panel is pending. 4. Atrial fibrillation. Heart rate s table, controlled. SP/DTS/C0204 Tyra Flores M.D. PROGRESS NOTE DATE: TIME: /DTS C0204 #[id number] Report Dictated By: TYRA FLORES Report Signed By: TYRA FLORES 04/20/16 0926 <<Signature on File>> Report Cosigned By: PROGRESS NOTE April 14, 2016 6:19pm KALI POLANCO [facility] PROGRESS NOTE Juan Priest DATE: 04/14/2016 M.R.#: [id number] SUBJECTIVE: The patient is feeling much better today; he wants to be able to go home. He has a mild cough without much expectoration noted. Still some oxygen desaturation noted on ambulation. OBJECTIVE: VITAL SIGNS: On exam, he is afebrile, blood pressure 139/65, pulse 70, respiratory rate 18, and O2 saturati ons are 95%. GENERAL: Patient not in any significant distress. Answers questions appropriately. Mood and affect appropriate. HEENT: Head exam is atraumatic and normocephalic. The pupils are equal, round, reactive to light and accommodation. No scleral icterus or conjunctival congestion seen. Mouth shows no oral thrush or oropharyngeal erythema. NECK: No lymphadenopathy. Trachea is midline. No thyroid enlargement noted. CHEST: Exam on the patient reveals good air entry bilaterally with mild crepitations. HEART: S1, S2 normal. No murmurs or rub noted. ABDOMEN: Soft, benign, nontender. EXTREMITIES: No edema. LABORATORY STUDIES: Among the labs; no new CBC done on the patient. BUN and creatinine on the patient normal. IMAGING STUDIES: Chest x-ray does not show any significant changes; some interstitial prominence is still noted. ASSESSMENT AND PLAN: An 86-year-old gentleman presenting to the hospital with a chronic cough as well as some shortness of breath on exertion. Noted to have bilateral interstitial infiltrates, especially in the left base, also increased opacity of the liver is noted suggestive of some degree of amiodarone toxicity, also possible contribution from methotrexate is also possible. The patient does have elevated liver enzymes noted, which seem to be rising up still. The plan will be to continue to observe, hold both of those medications, and request alternative from the security strategist and the well digger and recommend outpatient followup. /DAVID/C0350 Kali Polanco M.D. PROGRESS NOTE DATE: TIME: /DAVID C0350 #[id number] Report Dictated By: KALI POLANCO Report Signed By: KALI POLANCO 04/17/16 1418 <<Signature on File>> Report Cosigned By: PROGRESS NOTE April 15, 2016 3:33pm TYRA FLORES [facility] PROGRESS NOTE Juan Priest DATE: 04/15/2016 Kana#: [id number] SUBJECTIVE: Patient is doing well. Shortness of breath improved. OBJECTIVE: VITALS: Temperature afebrile, heart rate 60, respirations 18, blood pressure 153/66, O2 saturation 95%. GENERAL: Patient in no apparent distress. HEENT: PERRLA. NECK: Supple. CARDIOVASCULAR: Regular rate and rhythm. LUNGS: Clear. ABDOMEN: Soft. EXTREMITIES: No edema. LABORATORY: Basic metabolic panel stable. LFTs show AST and ALT that is trending down. White count stable. Ultrasound of gallbladder and liver parenchyma unremarkable. ASSESSMENT AND PLAN: 1. Pneumonia. Patient is actually do ing better. Continue on the empiric Levaquin. 2. Chronic interstitial lung disease. Patient needs outpatient follow up with Rheumatology, Cardiology, as well as Pulmonology. He already has his own security strategist and well digger, Dr. Reddy, but we stopped the patient's methotrexate and amiodarone with concerns of possible toxicity causing these symptoms. 3. Transaminitis. The AST and ALT ar e trending down. I think it may be all related to drug toxicity as well. I am going to recheck it tomorrow. If his LFTs are improved, then I think he is stable to go home and follow up as an outpatient with his PCP, Sarahi Clay. 4. Atrial fibrillation. Heart rate s table, controlled. SP/DTS/C0204 Tyra Flores M.D. PROGRESS NOTE DATE: TIME: /DTS C0204 #[id number] Report Dictated By: TYRA FLORES Report Signed By: TYRA FLORES 04/20/16 0926 <<Signature on File>> Report Cosigned By: PROGRESS NOTE April 15, 2016 5:47pm KALI POLANCO [facility] PROGRESS NOTE Jaun Priest DATE: 04/15/2016 Kana#: [id number] SUBJECTIVE: The patient has improvement in coughing, and no shortness of breath is reported and no chest pain. OBJECTIVE: VITAL SIGNS: On exam, he is afebrile. Blood pressure 132/61, pulse 68, respiratory rate 18, and O2 saturati on 96% on 2 L oxygen. GENERAL: Patient not in any distress. Answers questions appropriately. HEENT: His head exam is atraumatic, normocephalic. The pupils are equal, round, reactive to light and accommodation. No scleral icterus or conjunctival congestion is noted. His mouth shows no oral thrush or oropharyngeal erythema. NECK: Shows no lymphadenopathy. Trachea is midline. No thyroid enlargement is seen. CHEST: Exam on the patient reveals good air entry bilaterally with crepitations noted in the lungs suggestive of some interstitial lung disease. HEART: S1, S2 normal. ABDOMEN: Soft. EXTREMITIES: No edema. LABORATORY STUDIES: Among labs, there is improvement in the patient's LFTs noted. WBC count is 12,000, hemoglobin count is normal. BUN and creatinine on the patient are normal. ASSESSMENT AND PLAN: An 86-year-old male presenting to the hospital with shortness of breath and a chronic cough; noted to have bilateral interstitial infiltrates; most likely drug related pulmonary toxicity secondary to amiodarone, possibly even methotrexate also with associated transaminitis and some thyroid dysfunction. Patient seems to be doing better now with liver function tests improving, clinically stable. Will reduce the dose of prednisone to 40 mg a day and wean it down further to continue with outpatient followup and discuss with Cardiology about alternative medication. Follow up chest x-ray will be done tomorrow. /DAVID/C0350 Kali Polanco M.D. PROGRESS NOTE DATE: TIME: /DAVID C0350 #[id number] Report Dictated By: KALI POLANCO Report Signed By: KALI POLANCO 04/17/16 1419 <<Signature on File>> Report Cosigned By: DISCHARGE SUMMARY April 16, 2016 1:38pm [facility] Juan Priest ADM: 04/12/2016 DIS: 04/16/2016 Kana#: [id number] CONSULTANTS: Dr. Polanco, Pulmonary Services. DISCHARGE DIAGNOSES: 1. Community-acquired pneumonia. 2. Chronic interstitial lung disease likely medication induced. 3. Transaminitis. 4. Atrial fibrillation. 5. Drug-induced pulmonary toxicity. HOSPITAL COURSE: This is an 86-year-old male with past medical history of hypertension, dementia, congestive heart failure, atrial fibrillation on anticoagulation, polymyalgia rheumatica on chronic steroids and methotrexate, who presented with complaints of cough, weakness, and shortness of breath. Dr. Polanco with Pulmonary Services was consulted regarding his pneumonia, hypoxia, and persistent cough. The patient has been on both amiodarone and methotrexate, which could potentially cause both pulmonary and hepatic toxicity. Patient had both CT of the chest and abdomen and pelvis performed, and there is a concern for possibly amiodarone toxicity as the liver is hyperdense on the CT scan that was done without contrast. It was recommended that patient be stopped off the methotrexate and amiodarone. His LFTs were also noted to be elevated and are downtrending at this point. Patient will need close outpatient followup with his well digger as his amiodarone has been discontinued. Currently, the patient is in sinus rhythm with rate controlled and will be continued on diltiazem 360 mg daily for rate control, along with anticoagulation. He has also been asked to follow up closely with his security strategist, as his methotrexate has been discontinued, and he will be continued on steroids at a tapering dose. In addition, patient will be continued on an oral antibiotics upon discharge. Home O2 evaluation was performed prior to discharge and patient does qualify, and Case Management will be helping to arrange this. I will discuss the plan with both the patient and his daughter. PHYSICAL EXAMINATION: VITALS: Temperature 97.6, blood pressure 132/63, pulse 64, saturating 93% on 2 L. GENERAL: Patient sitting in bed, comfortable in no distress. HEENT: Head normocephalic. Extraocular movements intact. NECK: Supple. LUNGS: With good air movement bilaterally with fine crackles noted. CARDIOVASCULAR: S1, S2. Regular rate and rhythm. ABDOMEN: Soft, nontender. EXTREMITIES: No edema. ACTIVITY: As tolerated. DIET: Cardiac. MEDICATIONS: Please see reconciliation. Methotrexate and amiodarone have been discontinued. FOLLOW UP: Patient will need followup with his security strategist and well digger within 1 week of discharge, along with his primary care physician. NATY/DAVID/C0204 Breonna Amor M.D. DISCHARGE SUMMARY DATE: TIME: /DTS C0204 #[id number] Report Dictated By: BREONNA AMOR Report Signed By: BREONNA AMOR 04/26/16 0914 <<Signature on File>> Report Cosigned By: PROGRESS NOTE April 16, 2016 5:05pm KALI POLANCO [facility] PROGRESS NOTE Juan Priest DATE: 04/16/2016 Kana#: [id number] [facility]#: [id number] SUBJECTIVE: The patient is doing much better. He is wanting to go home today. No increasing shortness of breath, cough is reported. He is being evaluated for home oxygen. OBJECTIVE: VITAL SIGNS: The patient is afebrile. Blood pressure 132/63, pulse 64, respiratory rate 18, O2 saturation 9 3% on 2L oxygen. GENERAL: He is not in any distress, alert and oriented x3. Mood and affect appropriate. HEENT: Head exam is atraumatic and normocephalic. The pupils are equal, round, reactive to light and accommodation. No scleral icterus or conjunctival congestion is seen. Mouth shows no oral thrush or oropharyngeal erythema. NECK: Shows no lymphadenopathy. Trachea is midline. No thyroid enlargement noted. CHEST: Good air entry. Mild crepitations. No wheezing. HEART: S1, S2 normal. ABDOMEN: Soft. EXTREMITIES: Do not show edema. LABORATORY: BUN and creatinine on the patient were normal. Chest x-ray was reviewed by me and shows very minimal interstitial markings, but apart from that, no other new findings noted. ASSESSMENT AND PLAN: An 86-year-old gentleman with chronic cough and shortness of breath. 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 Clinically, the patient has been feeling better. His liver enzymes were stabilizing. The patient is being discharged. To be followed up as an outpatient and continued on low- dose prednisone. /DTS/C0139 Kali Polanco M.D. PROGRESS NOTE DATE: TIME: /DTS [id number] #[id number] Report Dictated By: KALI POLANCO Report Signed By: AKLI POLANCO 04/17/16 1419 <<Signature on File>> Report Cosigned By: HISTORY AND PHYSICAL January 09, 2019 2:46pm VIRGINIA GARCIA MD completed [facility] HISTORY PHYSICAL Juan Priest ADM: 01/09/2019 Kana#: [id number] ATTENDING PHYSICIAN: Virginia Garcia M.D. SERVICE: Hospitalist Medicine. PRIMARY CARE PHYSICIAN: Kari Clay M.D. CHIEF COMPLAINT: Productive cough with fevers and chills. HISTORY OF PRESENT ILLNESS: The patient is an 88-year-old male with a history of dementia, hypertension, hyperlipidemia, atrial fibrillation, CHF, GERD, and PMR, who presented to the ED with complaints of productive cough, fevers, and chills. The patient has a history of dementia and is unable to provide history. Most of the history is taken from his daughter, which whom he lives with and is also his power of senior attorney. His daughter reports that she checked his oxygen level at home and it was 84%, and she noticed that he has been coughing and he had 1 episode of hemoptysis. He has also had fevers and chills, temperature of 101. The patient's daughter states that the patient has not been complaining of shortness of breath, chest pain, nausea, vomiting, or any urinary complaints. He was brought to the ED and was placed on BiPAP in the ED. His chest x-ray showed acute pneumonia and the patient was admitted to IMU for further evaluation and treatment. REVIEW OF SYSTEMS: Twelve point review of systems were reviewed and are negative except for pertinent positives and negatives noted in HPI. PAST MEDICAL HISTORY: Hypertension, hyperlipidemia, atrial fibrillation, CHF, dementia, GERD, and PMR. PAST SURGICAL HISTORY: AAA repair, kidney stone removal. SOCIAL HISTORY: The patient was a former smoker and quit in 1984. He denies any alcohol or drug use. He lives with his daughter, Elba. FAMILY HISTORY: His mother had Alzheimer dementia. His father had Parkinson's disease. ALLERGIES: Reglan. HOME MEDICATIONS: 1. Donepezil 10 mg at bedtime. 2. Tizanidine 2 mg at bedtime p.r.n. 3. Xarelto 15 mg daily. 4. Simvastatin 40 mg at bedtime. 5. Diltiazem 180 mg daily. 6. Quetiapine 25 mg at bedtime. 7. Restoril 15 mg at bedtime. 8. Fluticasone 50 mcg daily. 9. Omeprazole 40 mg daily. 10. Prednisone 5 mg daily. PHYSICAL EXAMINATION: VITAL SIGNS: Temperature 98.1, pulse 78, respirations 23, blood pressure 108/62, pulse ox 98% on 3L. GENERAL: Not in acute distress, resting in bed, appears comfortable, conversant. HEENT: Normocephalic, atraumatic. Conjunctiva is moist and pink. PERRLA. NECK: Supple. No lymphadenopathy. LUNGS: Normal respiratory effort. The patient has been weaned off supplemental oxygen and is saturating well. He has coarse breath sounds bilaterally. CARDIOVASCULAR: Regular rate and rhythm. Normal S1, S2. ABDOMEN: Soft, nondistended, nontender. Bowel sounds present. EXTREMITIES: No clubbing, cyanosis, or edema. Pedal pulses intact. SKIN: Warm. Normal turgor. No rashes. NEUROLOGIC: Alert and oriented x1 only to himself. No focal deficits. LABORATORY STUDIES: Personally reviewed. ABG showed pH of 7.42, pO2 positive for 103, pCO2 of 40.5, bicarbonate 25.5, base excess 1.4. WBC 13.7, hemoglobin 13.8, hematocrit 42.6, platelets 175. INR 1.7. Sodium 140, potassium 3.9, chloride 107, CO2 22, BUN 20, creatinine 1.2, magnesium 1.9. LFTs within normal limits. BNP 33. Cardiac enzymes negative x1. Blood cultures are pending. IMAGING: Chest x-ray showed multifocal pneumonia. ASSESSMENT AND PLAN: 1. Acute respiratory failure with hypox ia, initially requiring BiPAP. The patient has been weaned off supplemental oxygen. We will continue to monitor his pulse ox. Continue supplemental oxygen as needed. This is likely due to acute community-acquired pneumonia, which is being treated with IV antibiotics. 2. Acute community-acquired pneumonia. The patient has been started on IV antibiotics with Rocephin and azithromycin. We will follow up with blood cultures. We will also order for sputum culture. 3. History of atrial fibrillation. We will continue his home medication of diltiazem and Xarelto. 4. History of dementia. We will contin ue his Aricept. His daughter reports that she will be staying with him overnight. 5. DVT prophylaxis. This is covered wi Xarelto. 6. GI prophylaxis. We will continue e patient's omeprazole. 7. Code status reviewed and the patient is DO NOT RESUSCITATE. 8. Surrogate decision maker is the ja katie's daughter, Elba, who is also his power of senior attorney. 9. The patient's case was discussed wit nursing. A.M. labs ordered. AB/DTS/C7003 Virginia Garcia M.D. HISTORY PHYSICAL DATE: TIME: /DTS C7003 #[id number] Report Dictated By: VIRGINIA GARCIA MD Report Signed By: VIRGINIA GARCIA MD 01/25/19 1657 <<Signature on File>> Report Cosigned By: DISCHARGE SUMMARY January 11, 2019 1:01pm VIRGINIA GARCIA MD [facility] DISCHARGE SUMMARY Juan Priest ADM: 01/09/2019 DIS: 01/11/2019 Kana#: [id number] SERVICE: Hospitalist Medicine. DISCHARGE DIAGNOSES: 1. Acute respiratory failure with hyp oxia, initially requiring BiPAP, resolved. 2. Acute community-acquired pneumonia . 3. History of atrial fibrillation. 4. History of dementia. DISCHARGE CONDITION: Stable. CONSULTATION: None. PROCEDURES: None. BRIEF HISTORY OF PRESENT ILLNESS AND HOSPITAL COURSE: The patient is an 88-year-old male with a history of hypertension, dementia, hyperlipidemia, atrial fibrillation, CHF, GERD, and PMR, who presented to the ED with complaints of productive cough, fevers, and chills. The patient's daughter reported that she checked his oxygen level at home and it was 84%. The patient also had temp of 101. He was brought to the ED and in the ED was placed on BiPAP. The patient's chest x-ray showed acute pneumonia. He was admitted initially to IMU and was treated aggressively with IV antibiotics. The patient was able to be weaned off the BiPAP as well as weaned off supplemental oxygen. He continued to improve clinically with IV antibiotics. Blood cultures were negative. The patient was continued on his home medications for atrial fibrillation as well as dementia. The patient was afebrile and his leukocytosis resolved. The patient was feeling much better and had clinically improved and therefore wanted to go home. He was discharged in stable condition. DISCHARGE PHYSICAL EXAMINATION: VITAL SIGNS: Temperature 98.7, pulse 75, respirations 16, blood pressure 124/58, pulse ox 94% on room air. GENERAL: Not in acute distress, resting comfortably, conversant. HEENT: Normocephalic, atraumatic. Conjunctivae moist and pink. NECK: Supple. No lymphadenopathy. LUNGS: Normal respiratory effort. Good air movement. There are some coarse breath sounds bilaterally, however, his breath sounds have improved compared to admission. CARDIOVASCULAR: Regular rate and rhythm. Normal S1, S2. ABDOMEN: Soft, nondistended, nontender. Bowel sounds present. EXTREMITIES: No clubbing, cyanosis, or edema. Pedal pulses intact. SKIN: Warm, normal turgor. No rashes. NEUROLOGIC: Alert and oriented x1. No focal deficits. DISCHARGE ACTIVITY: As tolerated. DISCHARGE DIET: Cardiac. DISCHARGE MEDICATIONS: See medication reconciliation form. DISPOSITION: Home. DISCHARGE INSTRUCTIONS AND FOLLOWUP: The patient was instructed to take medications as prescribed, finish antibiotics, and follow up with PCP within 1 week. I spent over 30 minutes on the patient's discharge management. AB/DTS/C7001 Virginia Garcia M.D. DISCHARGE SUMMARY DATE: TIME: /DTJosselyn C7001 #[id number] Report Dictated By: VIRGINIA GARCIA MD Report Signed By: VIRGINIA GARCIA MD 01/25/19 2707 <<Signature on File>> Report Cosigned By: CT CHEST W/O CONTRAST April 12, 2016 12:01am completed NON-CONTRAST CT OF THE THORAX INDICATION: Chest pain. TECHNIQUE: High resolution non-contrast CT images were obtained of the thorax in supine and prone positioning. FINDINGS: There is patchy ground-glass opacity within the right upper lobe. There is airspace consolidation within the left lower lobe. There is scattered interlobular and intralobular septal thickening with scattered bronchiectasis suspicious for changes of interstitial lung disease such as UIP or NSIP. There are aortic valvular calcifications. There are vascular calcifications of the aortic arch. Motion artifacts slightly limits image detail. IMPRESSION: 1. Airspace consolidation of the le ft lower lobe suspicious for pneumonia. 2. Patchy area of ground-glass opac ity seen within the right upper lobe, also suspicious for a focus of pneumonia. Follow up recommended. 3. Scattered areas of interlobular and intralobular septal thickening with bronchiectasis is suspicious for interstitial lung disease such as UIP or NSIP. POS: OFF REPORT SIGNED IN OTHER VENDOR SYSTEM 04/12/2016 Reported By: CHELSEA RIDLEY M.D. CT ABD & PELVIS W CONTRAST April 12, 2016 12:04am completed CT OF THE ABDOMEN AND PELVIS WITH IV CON TRAST INDICATION: Abdominal pain. FINDINGS: There is a left lower lobe pneumonia. No focal hepatic lesion is evident. The pancreas, adrenal glands, and right kidney are normal appearing. There is a 1.7 cm staghorn calculus within the inferior pole of the left kidney. There is a 1.9 cm cyst within the superior pole of the left kidney. There are moderate calcifications involving the abdominal aorta. There is a mild amount of retained stool within the colon. The prostate is mildly enlarged. There is scattered degenerative and osteoarthritic change. IMPRESSION: 1. Left lower lobe pneumonia. 2. Staghorn calculus left kidney. Left renal cyst. 3. Prostate enlargement. 4. Mild amount of retained stool wi thin the colon. POS: OFF REPORT SIGNED IN OTHER VENDOR SYSTEM 04/12/2016 Reported By: CHELSEA RIDLEY M.D. CHEST 1 VIEW (AP) January 09, 2019 7:42am CHAYITO JOHNSON letsacha SINGLE VIEW OF THE CHEST: COMPARISON: 06/17/2016 HISTORY: Shortness of breath. FINDINGS: Single view of the chest shows a normal-sized cardiomediastinal silhouette with atherosclerotic calcifications in the aorta. Increased interstitial lung markings are present. There is a superimposed air space opacity projecting over the right upper lobe. Bibasilar atelectasis versus infiltrates may also be present. IMPRESSION: Multifocal pneumonia. POS: [facility] REPORT SIGNED IN OTHER VENDOR SYSTEM 01/09/2019 Reported By: CHAYITO JOHNSON M.D. CHEST 1 VIEW (AP) April 14, 2016 7:37am CHERELLE RUTH MD completed CHEST ONE VIEW: HISTORY: Pneumonia, followup. COMPARISON: 04/11/2016 FINDINGS: The cardiac silhouette is magnified and enlarged. The pulmonary vasculature is more engorged than on the prior exam with increasing fluffy bilateral perihilar and bibasilar infiltrates. Mediastinum is midline with aortic calcification. No lobar consolidation is apparent. ceo ziff davis leads overlie the chest. IMPRESSION: Increasing pulmonary vascular congestion. POS: OFF REPORT SIGNED IN OTHER VENDOR SYSTEM 04/14/2016 Reported By: Cami RUTH M.D. CHEST 1 VIEW (AP) April 11, 2016 8:21pm comp leted AP VIEW OF THE CHEST INDICATION: Cough. COMPARISON: Prior exam dated 07/30/2015. FINDINGS: There is stable cardiomegaly. Interstitial fibrotic change is stable. No airspace consolidation or pleural effusion is evident. No acute osseous abnormality is evident. IMPRESSION: No acute abnormality. Stable chronic lung changes. Stable cardiomegaly. POS: OFF REPORT SIGNED IN OTHER VENDOR SYSTEM 04/11/2016 Reported By: CHELSEA RIDLEY M.D. CHEST 2 VIEWS April 16, 2016 8:03am Surya REINOSO compl eted CHEST TWO VIEWS: HISTORY: Interstitial lung disease. COMPARISON: Comparison made with exam of 04/14/2016. FINDINGS: The heart size is mildly prominent but stable. The lungs are well-expanded with prominent interstitial markings. [place] of the interstitial markings in the lung bases and in the right upper lobe. These may represent superimposed acute infiltrates. No pneumothoraces or large effusions are seen. POS: [facility] REPORT SIGNED IN OTHER VENDOR SYSTEM 04/17/2016 Reported By: Jonathan REINOSO M.D. US GALLBLADDER April 15, 2016 8:47am Carlin Gaston ULTRASOUND ABDOMEN LIMITED: (RIGHT UPPER QUADRANT) HISTORY: Elevated liver enzymes. FINDINGS: The gallbladder has normal wall thickness and has no evidence of gallstones or sludge. The hepatic echogenicity is normal. The right kidney has normal echogenicity and has no hydronephrosis. The pancreas is visualized, although ultrasound is relatively insensitive for pancreatic pathology compared to CT and MRI. There is no biliary dilation. The common duct caliber is 4 mm. IMPRESSION: Normal. jn r POS: OFF REPORT SIGNED IN OTHER VENDOR SYSTEM 04/15/2016 Reported By: CARLIN GASTON M.D. BARIUM SWALLOW MODIFIED April 13, 2016 10:45am Carlin Gaston I. completed MODIFIED BARIUM SWALLOW WITH SPEECH THER APIST: HISTORY: An 86-year-old male with dementia; and dysphagia, unspecified R13.10, feeding difficulties R63.9. FINDINGS: There is penetration with nectar and thin liquids, without eliciting a cough reflux. No madonna aspiration. No significant residue. Some premature free spillage. Adequate laryngeal elevation and epiglottic inversion. Total fluoroscopy time: 1.8 minutes. Radiation dose: 18.84 mGy. IMPRESSION: Silent penetration. POS: [facility] REPORT SIGNED IN OTHER VENDOR SYSTEM 04/13/2016 Reported By: CARLIN GASTON M.D. L RIBS UNILAT 2 VWS W/PA CXR April 13, 2016 11:33am CHAYITO JOHNSON completed ANTERIOR VIEW OF THE CHEST AND LEFT RIB SERIES: HISTORY: Pneumonia and left rib pain. FINDINGS: The anterior view of the chest and multiple views of the left ribs show a normal-sized cardiomediastinal silhouette with atherosclerotic calcifications in the aorta. There is no evidence of consolidation, mass, or pleural effusion. Increased interstitial lung markings are present. No expansile rib lesions are seen. No rib fractures are seen. No underlying pleural thickening or pneumothorax are present. IMPRESSION: 1. Chronic interstitial lung diseas e. 2. No evidence of displaced left ri b fracture. POS: [facility] REPORT SIGNED IN OTHER VENDOR SYSTEM 04/13/2016 Reported By: CHAYITO JOHNSON M.D. Health Concerns No known health concerns documented Advance Directives Advance Directive Response Recorded Date/Time DNR DNR January 09, 2019 2 :48pm Y Y January 09, 2019 9 :35am Y Y January 09, 2019 9 :35am N N January 09, 2019 5 :35am Y Y January 09, 2019 9 :35am N N January 09, 2019 5 :35am Chief Complaint and Reason for Visit Reason for Visit CHF(CONGESTIVE HEART FAILURE ) RESPIRATORY DISTRESS Encounters Encounter Location(s) Arrival/Admit Date Discharge/Depart Date Provider(s) Discharged Inpatient [facility] January 09, 2019 5:03am January 11, 2019 12:27pm VIRGINIA GARCIA MD Discharged Inpatient [facility] April 11, 2016 7:51pm April 16, 2016 5:24pm TYRA FLORES Recent Diagnosis Onset Date CHF (congestive heart failure) Acute febrile illness Liver enzyme elevation Assessments Diagnosis Onset Date Resolution Status CHF (congestive heart failure) A ctive Acute febrile illness Active Liver enzyme elevation Active Functional Status Observation Response Date Recorded Speech Pattern: Normal January 11, 2019 6 :34am Seizure Act.? N January 10, 2019 1 0:08pm RUE Strength: Normal January 10, 2019 1 0:08pm LUE Strength: Normal January 10, 2019 1 0:08pm RLE Strength: Weak January 10, 2019 1 0:08pm LLE Strength: Weak January 10, 2019 1 0:08pm Gait: Unsteady January 11, 2019 6 :34am Goals No Goals Information Available Immunizations No Immunization Information Available Mental Status Observation Response Date Recorded WNL?+ N January 11, 2019 9 :00am Person: N January 11, 2019 1 0:34am [address]: N January 11, 2019 1 0:34am Time: Y January 11, 2019 1 0:34am Situation: Y January 11, 2019 1 0:34am LOC: Alert January 11, 2019 6 :34am Medical Equipment No Medical Equipment Information available Insurance Providers Guarantor JUAN PRIEST Address [address] [facility] [facility] [address] Contact Info. Payer Policy Id Coverage Id Subscriber's Name Subscriber Id Effect cara Date Expiration Date [facility] [id number] JUAN PRIEST Plan of Treatment FINISH ANTIBIOTICS F/U PCP 1 WEEK Future Tests Future scheduled test information is unavailable Pending Tests Pending diagnostic test information is unavailable Future Visits Future appointment information is unavailable Referrals to Other Providers Referral information is unavailable Future Procedures Future procedure information is unavailable Future Medications Future medication information is unavailable Patient Instructions DI for Heart Failure DI for Pneumonia -- Adult How to Prevent Falls DI for Hypoxia Social History Smoking Status Status Date of Observation January 09, 2019 9:35am Observation Status Observation Response Date of Response Alcohol? N January 09, 2019 9 :35am Recreational drugs? N January 09, 2019 9 :35am Occupation: RETIRED January 09, 2019 9 :35am Methodist/Cultural Preferences: ROMAN CATHOLIC January 09, 2019 9:35am Assigned Sex Male Vital Signs Vital Reading Result Collection Date/Time BP Systolic 124 mm[Hg] January 11, 2019 1 1:30am BP Diastolic 58 mm[Hg] January 11, 2019 1 1:30am Body Temperature 98.7 [degF] January 11, 2019 1 1:30am Respiratory rate 16 /min January 11, 2019 1 1:30am Heart Rate 75 /min January 11, 2019 1 1:30am Oxygen saturation by Pulse oximetry 94 % [facility] 2018 11:30am Height 71 [in_i] January 10, 2019 5 :50am Weight 167.37 [lb_av] January 10, 2019 5 :50am Weight 75.92 kg January 10, 2019 5 :50am BMI (Body Mass Index) 23.3 kg/m2 January 10, 2019 5:50am BP Systolic 132 mm[Hg] April 16, 2016 2 :28pm BP Diastolic 63 mm[Hg] April 16, 2016 2 :28pm Body Temperature 97.6 [degF] April 16, 2016 2 :28pm Respiratory rate 18 /min April 16, 2016 2 :28pm Heart Rate 64 /min April 16, 2016 2 :28pm Oxygen saturation by Pulse oximetry 93 % [facility] 2016 2:28pm Height 69 [in_i] April 14, 2016 6 :14am Weight 134.48 [lb_av] April 14, 2016 6 :14am Weight 61 kg April 14, 2016 6 :14am BMI (Body Mass Index) 19.9 kg/m2 April 14, 2016 6:14am
--- OUTSIDE RECORDS SUMMARY | 2019-08-08 13:54 | XMS REPORT ---
Author Author [facility] t Organization [facility] Address [address] [place] [address] Phone Unavailable Care Team Providers Care Helper Metal Hanging Name Role Phone Unavailable Unavailable Payers Payer Name Policy Type Policy Number Effective Date Expiration Date S ource Problems Condition Name Condition Details Condition Category Status Onset Date Resolution Date Last Treatment Date Treating Clinician Comments Source PNEUMONIA SYMPTOMS PNEU MONIA SYMPTOMS Active 07/13/2019 [facility] Diagnosis Active 2019-07-13 00:00:00 2019-07-13 05:11:00 [facility] SEVERE SEPSIS, UTI, PNA, A FIB SEVERE SEPSIS, UTI, PNA, A FIB Active 07/13/2019 [facility] Diagnosis Active 2019-07-13 00:00:0 0 2019-07-25 21:48:00 [facility] Heart failure, unspecified Hea rt failure, unspecified Active Problem 10/10/2016 Ashesh Daugherty Problem Active 2016-10-10 02:45:09 Kiran Daugherty Advance care planning Adva nce care planning Active Problem 10/10/2016 Ashesh Daugherty Problem Active 2016-10-10 02:45:09 Kiran Daugherty Chronic obstructive pulmonary disease, unspecified E [employer] D type Chronic obstructive pulmonary disease, unspecified COPD type Active Problem 10/10/2016 Kiran Daugherty Problem Active 2016-10-10 02:45:09 Kiran Daugherty Polymyalgia rheumatica Poly myalgia rheumatica Active Problem 10/10/2016 Kiran Daugherty Problem Active 2016-10-10 02:45:09 Kiran Daugherty Allergic rhinitis, unspecified Allergic rhinitis, unspecified Active Problem 10/10/2016 Kiran Daugherty Problem Active 2016-10-10 02:45:09 Kiran Daugherty SEVERE SEPSIS WITHOUT SEPTIC SHOCK SEVERE SEPSIS WITHOUT SEPTIC SHOCK Active [facility] Diagnosis Active 2019-07-25 21 :48:00 [facility] URINARY TRACT INFECTION, SITE NOT SPECIF URINARY TRACT INFECTION, SITE NOT SPECIF Active [facility] Diagnosis Active 2019-07-25 21:48:00 [facility] PNEUMONIA, UNSPECIFIED ORGANISM PNEUMONIA, UNSPECIFIED ORGANISM Active [facility] Diagnosis Active 2019-07-25 21:48 :00 [facility] Allergies, Adverse Reactions, Alerts Allergy Name Allergy Type Status Severity Reaction(s) Onset Date Inacti ve Date Treating Clinician Comments Source metoclopramide DA Active U 2016-04-21 00:00:00 [facility] Medications This patient has no known medications. Procedures This patient has no known procedures. Encounters Start Date/Time End Date/Time Encounter Type Admission Type [facility] Facility Care Department Encounter ID Source 2019-08-08 13:53:39 Outpatient MHIEALT IEALT [id number] [facility] 2019-07-13 05:23:00 Inpatient E [facility] [id number] [facility] 2016-10-09 09:57:00 2016-10-09 09:57:00 [facility] [id number] Results Test Description Test Time Test Comments Results Result Comments Source EMERGENCY ROOM PROFILE 2018-09-12 10:41:00 Test Item DIAGNOSIS (test code = DIAG) SPECIMENS RCVED SPECIMEN RECEIVED B-TYPE NATRIURETIC [id number] 07:34:00* Test Item Value Reference Range Interpretation Comments B-TYPE NATRIURETIC PEPTIDE (test code = BNP) < 30.00 PG/ML 0.00-100 .00 N COMPREHENSIVE METABOLIC [id number] 06:39:00* Test Item Value Reference Range Interpretation Comments SODIUM (test code = NA) 138.0 mmol/L 133-144 N POTASSIUM (test code = K) 3.5 mmol/L 3.5-5.1 N CHLORIDE (test code = CL) 104 mmol/L 95-105 N CARBON DIOXIDE (test code = CO2) 27 mmol/L 21-32 N ANION GAP (test code = GAP) 7.0 GAP calc 4.0-15.0 N GLUCOSE (test code = GLU) 76 MG/DL 70-110 N BLOOD UREA NITROGEN (test code = BUN) 14 MG/DL 7-18 N GLOMERULAR FILTRATION RATE (test code = GFR) 63 estGFR >60 The estimated glomerular filtration rate is computed usingpatient race, age, sex, and serum creatinine. If any of theneeded data elements are missing the Laboratory can notcompute an estimation of the glomerular filtration rate.The GFR value units = ml/min/1.73 meter squared. EstimatedGFR values above 60 should be interpreted as >60, not anexact number.--- DRUG DOSAGE ALERT --- Drug dosage adjustments utilize different calculationparameters. CREATININE (test code = CREAT) 1.10 MG/DL 0.55-1.30 N Results may be depressed if patient is takingN-Acetylcysteine (NAC) and Metamizole (Dipyrone). TOTAL PROTEIN (test code = PROT) 7.4 G/DL 6.4-8.2 N ALBUMIN (test code = ALB) 2.8 G/DL 3.4-5.0 L ALBUMIN/GLOBULIN RATIO (test code = A/G) 0.6 RATIO 1.2-2.2 L CALCIUM (test code = CA) 9.0 MG/DL 8.5-10.1 N BILIRUBIN TOTAL (test code = BILT) 0.22 MG/DL 0.00-1.00 N BILIRUBIN DIRECT (test code = BILD) 0.11 MG/DL 0.00-0.30 N BILIRUBIN INDIRECT (test code = BILIND) 0.11 MG/DL 0.2-1.3 L SGOT/AST (test code = AST) 24 Unit/L 15-37 N SGPT/ALT (test code = ALT) 18 Unit/L 12-78 N ALKALINE PHOSPHATASE TOTAL (test code = ALKP) 79 Unit/L 45-117 N INDEX HEMOLYSIS (test code = HEMINDEX) 1 NORMAL <10 MG Index/DL 1 N ORMAL INDEX ICTERIC (test code = ICTINDEX) 1 NORMAL <2 MG Index/DL 1 NORM AL INDEX LIPEMIA (test code = LIPINDEX) 1 NORMAL <50 MG Index/DL 1 [facility] COMPREHENSIVE METABOLIC [id number] 06:37:00* Test Item Value Reference Range Interpretation Comments SODIUM (test code = NA) 138.0 mmol/L 133-144 N POTASSIUM (test code = K) 3.5 mmol/L 3.5-5.1 N CHLORIDE (test code = CL) 104 mmol/L 95-105 N CARBON DIOXIDE (test code = CO2) 27 mmol/L 21-32 N ANION GAP (test code = GAP) 7.0 GAP calc 4.0-15.0 N GLUCOSE (test code = GLU) 76 MG/DL 70-110 N BLOOD UREA NITROGEN (test code = BUN) 14 MG/DL 7-18 N GLOMERULAR FILTRATION RATE (test code = GFR) 63 estGFR >60 The estimated glomerular filtration rate is computed usingpatient race, age, sex, and serum creatinine. If any of theneeded data elements are missing the Laboratory can notcompute an estimation of the glomerular filtration rate.The GFR value units = ml/min/1.73 meter squared. EstimatedGFR values above 60 should be interpreted as >60, not anexact number.--- DRUG DOSAGE ALERT --- Drug dosage adjustments utilize different calculationparameters. CREATININE (test code = CREAT) 1.10 MG/DL 0.55-1.30 N Results may be depressed if patient is takingN-Acetylcysteine (NAC) and Metamizole (Dipyrone). TOTAL PROTEIN (test code = PROT) G/DL 6.4-8.2 ALBUMIN (test code = ALB) 2.8 G/DL 3.4-5.0 L ALBUMIN/GLOBULIN RATIO (test code = A/G) RATIO 1.2-2.2 CALCIUM (test code = CA) 9.0 MG/DL 8.5-10.1 N BILIRUBIN TOTAL (test code = BILT) MG/DL 0.00-1.00 BILIRUBIN DIRECT (test code = BILD) 0.11 MG/DL 0.00-0.30 N BILIRUBIN INDIRECT (test code = BILIND) MG/DL 0.2-1.3 SGOT/AST (test code = AST) 24 Unit/L 15-37 N SGPT/ALT (test code = ALT) 18 Unit/L 12-78 N ALKALINE PHOSPHATASE TOTAL (test code = ALKP) Unit/L 45-117 INDEX HEMOLYSIS (test code = HEMINDEX) 1 NORMAL <10 MG Index/DL 1 N ORMAL INDEX ICTERIC (test code = ICTINDEX) 1 NORMAL <2 MG Index/DL 1 NORM AL INDEX LIPEMIA (test code = LIPINDEX) 1 NORMAL <50 MG Index/DL 1 NOR MAL PT AND [id number] 06:31:00* Test Item Value Reference Range Interpretation Comments PT PATIENT (test code = PTP) 20.4 SECONDS 9.4-12.5 H INTERNATIONAL NORMAL RATIO (test code = INR) 1.79 INR Unit 0.88-1.1 3 H Therapeutic range for INR is dependent upon the situation.2.0-3.0 Prophylaxis / venous thromboembolism, Treatment of DVT, Acute myocardial infarction stroke prevention, Systemic embolism prevention in fibrillation3.0-4.5 AMI recurrence prevention, Systemic embolism prevention in prosthetic heart 3.0-5.4 AMI mortality reduction THROMBOPLASTIN TIME PARTIAL (test code = PTT) 34.4 SECONDS 24-37.7 N THERAPEUTIC RANGE FOR UNFRACTIONATED HEPARIN = 50.5-83.6 SEC This test is not recommended to monitor low molecularweight heparin or danaparoid. Order LMWH test COLLECTION THROUGH LINES THAT HAVE BEEN PREVIOUSLY FLUSHEDWITH HEPARIN SHOULD BE AVOIDED DUE TO POSSIBLE HEPARINCONTAMINATION - XR CHEST 1 [id number] 06:31:00 FAX: Paul Cardona DO [phone] [place]: E St: PRE Patient Na me: BASIM MORALES Unit No: [id number] EXAMS: CPT CODE: [id number] XR CHEST 1 V [id number] EXAM: CHEST ONE VIEW INDICATION: COUGH LOCATION: B2 COMPARISON: Chandra hoda 2016 TECHNIQUE: AP view of the chest FINDING S: The heart size is normal. There are diffuse congestive changes throughout both lungs. No pneumothorax or pleural effusion is identified. The osseous structures are normal. IMPRESSION: Diffuse congestive changes throughout both lungs. Elect ronically Signed by Thaddeus Valencia on 09/12/2018 at 0631 Reported and signed by: Zaynab haynes M.D. CC: Paul Cardona DO Dictated Date/Time: 09/12/2018 (630)Technologist: Yamilex Brunson Transcribed Date/Time: 09/12/2018 (630) By: [email or web address] Orig Print D/T: S: 09/12/2018 (0634) LEEROY Yuen NAME: BASIM MORALES [address] [place] [address] PHYS: Paul Roberto, [place] [address] : 1930 AGE: 88 SEX: M LOC: [facility] PHONE #: [phone] EXAM DATE: 09/12/2018 STATUS: PRE ER FAX #: [phone] RAD NO: DC Dt: PAGE 1 Signed Report TROPONIN I [id number] 06:30:00* Test Item Value Reference Range Interpretation Comments TROPONIN I RAPID (test code = TROPIRAP) 0.00 NG/ML 0.00-0.07 N An elevated troponin value alone is not sufficient todiagnose a myocardial infarction. Rather, the patient'sclinical presentation (history, physical exam) and ECGshould be used in conjunction with troponin in thediagnostic evaluation of suspected myocardial infarction. Aserial sampling protocol is recommended to facilitate theidentification of temporal changes in troponin levelscharacteristic of [place]. CBC W/AUTO [id number] 06:22:00* Test Item Value Reference Range Interpretation Comments WHITE BLOOD CELL (test code = WBC) 10.4 K/mm3 4.1-12.1 N RED BLOOD CELL (test code = RBC) 4.65 M/mm3 3.8-5.5 N HEMOGLOBIN (test code = HGB) 13.6 G/DL 10.6-15.8 N HEMATOCRIT (test code = HCT) 42.2 % 31.8-47.4 N MEAN CELL VOLUME (test code = MCV) 90.8 fL 80.1-101.1 N MEAN CELL HGB (test code = MCH) 29.2 pg 25.3-35.3 N MEAN CELL HGB CONCETRATION (test code = MCHC) 32.2 G/DL 32.7-35. 1 L RED CELL DISTRIBUTION WIDTH (test code = RDW) 14.1 % 12.2-16. 4 N RED CELL DISTRIBUTION WIDTH (test code = RDW-SD) 46.5 fL 35.1- 43.9 H PLATELET COUNT (test code = PLT) 237 K/mm3 155-337 N MEAN PLATELET VOLUME (test code = MPV) 10.2 fL 7.6-10.4 N GRANULOCYTE % (test code = GR%) 61.9 % 37.8-82.6 N IMMATURE GRANULOCYTE % (test code = IG%) 0.6 % 0.0-2.0 N LYMPHOCYTE % (test code = LY%) 21.2 % 14.1-45.4 N MONOCYTE % (test code = MO%) 7.5 % 2.5-11.7 N EOSINOPHIL % (test code = EO%) 8.0 % 0.0-6.2 H BASOPHIL % (test code = BA%) 0.8 % 0.0-2.6 N NUCLEATED RBC % (test code = NRBC%) 0.0 /100WBC% 0.0-1.0 N GRANULOCYTE # (test code = GR#) 6.41 k/mm3 2.0-13.7 N IMMATURE GRANULOCYTE # (test code = IG#) 0.06 K/mm3 0.00-0.03 H LYMPHOCYTE # (test code = LY#) 2.19 K/mm3 0.6-3.8 N MONOCYTE # (test code = MO#) 0.78 K/mm3 0.11-0.59 H EOSINOPHIL # (test code = EO#) 0.83 K/mm3 0.0-0.4 H BASOPHIL # (test code = BA#) 0.08 K/mm3 0.0-0.1 N NUCLEATED RBC # (test code = NRBC#) 0.00 K/mm3 0.00-0.05 N
[2019-08-08 15:00] LABS: BASOPHILS # (AUTO) 0.1 (0.0-0.1); BASOPHILS % 0.8 % (0.0-1.0); EOSINOPHILS # (AUTO) 1.6 (0.0-0.4); EOSINOPHILS % 17.6 % (0.0-6.0); HEMATOCRIT 36.3 % (38.2-49.6); HEMOGLOBIN 11.2 g/dL (14.0-18.0); LYMPHOCYTES # (AUTO) 1.7 (1.0-3.2); LYMPHOCYTES % 18.6 % (18.0-39.1); MEAN CORPUSCULAR HEMOGLOBIN 26.9 pg (28-32); MEAN CORPUSCULAR HGB CONC 30.9 g/dL (31-35); MEAN CORPUSCULAR VOLUME 87.3 fL (81-99); MONOCYTES # (AUTO) 0.7 (0.2-0.8); NEUTROPHILS % 54.7 % (38.7-80.0); PLATELET COUNT 242 x10e3/uL (140-360); RED BLOOD COUNT 4.16 x10e6/uL (4.3-5.7); RED CELL DISTRIBUTION WIDTH 15.8 % (11.7-14.4)
[2019-08-08 15:14] LABS: INR 1.28; PROTHROMBIN TIME 16.8 seconds (11.9-14.5)
[2019-08-08 15:15] LABS: PARTIAL THROMBOPLASTIN TIME 33.1 seconds (23.8-35.5)
[2019-08-08 15:24] LABS: ALANINE AMINOTRANSFERASE 16 IU/L (0-55); ALBUMIN 3.2 g/dL (3.5-5.0); ALBUMIN/GLOBULIN RATIO 0.9 (0.8-2.0); ALKALINE PHOSPHATASE 60 IU/L (40-150); ANION GAP 13.4 mmol/L (8-16); BLOOD UREA NITROGEN 13 mg/dL (7-26); BUN/CREATININE RATIO 12 (6-25); CALCIUM 9.5 mg/dL (8.4-10.2); CARBON DIOXIDE 23 mmol/L (22-29); CHLORIDE 106 mmol/L (98-107); CREATINE KINASE 306 IU/L (30-200); CREATININE, SERUM 1.13 mg/dL (0.72-1.25); EST GLOMERULAR FILTRATION RATE > 60 ML/MIN (60-); GLUCOSE 96 mg/dL (74-118); LIPASE 48 U/L (8-78); MAGNESIUM 1.9 MG/DL (1.3-2.1); POTASSIUM 3.4 mmol/L (3.5-5.1); SODIUM 139 mmol/L (136-145)
--- NOTE | 2019-08-08 15:43 | Diagnostic Imaging Report ---
X-ray chest AP portable Comparison: None History: Blood in urine and stool. Pain to touch in abdomen. Findings: Central airways unremarkable. Heart size borderline enlarged. Atherosclerotic ectatic aorta. No definite pleural effusion. No pneumothorax. Bilateral lung infiltrates mostly interstitial linear reticular and peribronchial type with a few nodular opacities left more prominent than right. There is also retrocardiac left lung lobe opacity. Visualized skeletal structures are remarkable for osteopenia. Upper abdomen unremarkable. Impression: Bilateral lung infiltrates of interstitial and airspace type. Viral pneumonitis is not ruled out. Another process such as atypical pulmonary edema, and other infectious etiologies would also be in the differential diagnosis. Signed by: Phani Andrew MD on 08/08/2019 3:40 PM
--- NOTE | 2019-08-08 16:29 | Diagnostic Imaging Report ---
CT of the abdomen and pelvis. Comparison: None Clinical History: Hematuria Technique: Helical CT scan of the abdomen and pelvis was performed. Intravenous contrast administration was not utilized. Oral contrast administration was not utilized. Coronal and sagittal reconstructions were generated from the raw data. Multiple images were submitted for interpretation. This exam was performed according to our departmental dose-optimization program which includes automated exposure control, adjustment of the mA and/or kV according to patient size Discussion: Inferior chest: Bilateral pulmonary parenchymal abnormality characterized by groundglass opacification and airspace consolidation most noticeable in the lingular lobe, the left lower lobe. There is presence of minimal honeycombing in the subpleural locations bilaterally. There is no pleural effusion. There is no pneumothorax. Visualized central airways are unremarkable. There is presence of multiple small lymph nodes in the prevascular region, pretracheal region, right and left hilar region, in the left and right paratracheal location, a few of them in the pulmonary marky are calcified. These do not meet the definition of lymphadenopathy by size criteria. There is patchy atherosclerotic calcification of the entire aortoiliac segment. There is aortic annulus calcification. There is coronary artery calcification. Heart size is enlarged. There is no pericardial effusion. There is no pleural effusion. Liver: Grossly unremarkable Spleen: Unremarkable Pancreas: Unremarkable Biliary tree and gallbladder: Unremarkable Adrenal glands: Unremarkable Kidneys and ureters: Right ureteric calculus measuring 8 mm across. Situated just beyond the UPJ. Small cortical renal cysts on the right side. The left kidney shows multiple radiodense calculi in the mid and lower poles on making the cast of the collecting system consistent with staghorn calculi. There is presence of mild hydroureter. There is presence of a calculus in the proximal ureter that measures approximately 10 mm across. The left kidney also seems to have a few cortical renal cysts, too small to characterize on this exam. The urinary bladder diverticuli. There is bladder wall thickening. This needs to be further investigated. There is a large prostate gland impinging on the bladder base with possible bladder outlet obstruction that might account for bladder wall thickening. Vasculature: As above Lymph nodes: The evaluation is limited in the absence of intravenous contrast medium. Bowel: Sliding hiatal hernia is noted. Pelvis: As above. Seminal vesicles unremarkable. Pelvic wall unremarkable. Peritoneum: Unremarkable Perineal compartments: unremarkable. Fluid: No free fluid Bones: Degenerative changes. No lytic or blastic lesions. Body wall: Unremarkable. 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 No bladder calculi. Bilateral lung infiltrates with left lingular and lower lobe consolidation that could represent pneumonia as described above. Mediastinal lymphadenopathy as described above. Signed by: Phani Andrew MD on 08/08/2019 4:26 PM
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
[2019-08-08 16:32] LABS: CLARITY,URINE TURBID (CLEAR); COLOR,URINE BROWN (YELLOW)
[2019-08-08 16:34] LABS: BILIRUBIN,URINE SMALL (NEGATIVE); KETONES,URINE NEGATIVE (NEGATIVE); LEUKOCYTE ESTERASE ,URINE TRACE (NEGATIVE); NITRITE,URINE NEGATIVE (NEGATIVE); PROTEIN,URINE DIPSTICK >=300 (NEGATIVE); URINE UROBILINOGEN 0.2 mg/dL (0.2 - 1)
--- NOTE | 2019-08-08 16:35 | NUR ---
aos notified of need for 1:1 sitter.
[2019-08-08] MEDS: QUETIAPINE FUMARATE 25 MG TAB PO SCH ×2 (16:43→21:22)
[2019-08-08] MEDS ORDERED: LORAZEPAM INJ 2 MG/ML VIAL IV ONE (16:45)
[2019-08-08] MEDS ORDERED: SODIUM CHLORIDE 0.9% 500ML 500 ML IV ONE (16:45)
[2019-08-08] MEDS ORDERED: ONDANSETRON HCL INJ 2MG/ML 2ML 2 MG/ML VIAL IV PRN ×2 (16:45→19:45)
[2019-08-08 16:46] LABS: RBC,URINE >50 /HPF (0-5); WBC,URINE (MAN) 0-5 /HPF (0-5)
[2019-08-08 16:47] LABS: EPITHELIAL CELLS,URINE RARE /LPF
[2019-08-08] MEDS ORDERED: SODIUM CHLORIDE 0.9% 250ML 250 ML ONE (16:52)
[2019-08-08] MEDS ORDERED: IOPAMIDOL 370 MG/ML 200 ML INFUS..BTL INJ ONE (16:52)
[2019-08-08] MEDS ORDERED: FAMOTIDINE 20 MG/2 ML VIAL IV SCH (17:00)
[2019-08-08] MEDS ORDERED: AZITHROMYCIN 500MG/NS 250 ML 250 ML IV SCH ×2 (17:00→20:30)
--- NOTE | 2019-08-08 17:07 | Emergency Department Note ---
History of Present Illnes History of Present Illness Chief Complaint: General Medicine Complaints History of Present Illness This is a 89 year old male PT WAS ADMITTED TO [facility] ON 07/12 AND DX WITH PNEUMONIA AND AFIB. ALSO NOTED HEMATURIA/UTI. PT WENT HOME ON July. PT HERE TODAY WITH COMPLAINT OF BLOOD IN URINE. 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 PT STATE "WE JUST MOVED HERE IN [place] FROM [place]." STATES ALL DOCTORS ARE IN [facility]. PT IS ON XARELTO FOR AFIB. Historian: Patient, Family Member (DAUGHTER) Arrival Mode: Car History limited by: condition of the patient Mechanical Meter Tester Required: No Onset (how long ago): day(s) (1) Location: HEMATURIA Quality: BLOODY Radiation: non-radiation Severity: moderate Onset quality: gradual Duration (how long): day(s) (1) Timing of current episode: intermittent Progression: worsening Chronicity: new Context: recent illness Relieving factors: none Exacerbating factors: medication (ON XARELTO) Associated symptoms: denies other symptoms Treatments prior to arrival: none Past Medical/Family History Physician Review I have reviewed the patient's past medical and family history. Any updates have been documented here. Past Medical History Recent Fever: No Clinical Suspicion of Infectio: No New/Unexplained Change in Ment: No Past Medical History: Hypertension, CHF, A-Fib, Kidney Stones, UTI's, Anemia, Hyperlipedemia Other Medical History: ALZHEIMERS PNEUMONIA AAA REPAIRED 2009 QUIT SMOKING AGE 41 NO ETOH Other Surgery: TRIPLE AAA REPAIR KIDNEY STONE REMOVED Social History Smoking Cessation: Never Smoker Counseling Performed: No Alcohol Use: None Any Illegal Drug Use: No TB Exposure/Symptoms: No Physically hurt or threatened: No Family History Family history of heart diseas: No Other Last Tetanus: UNKNOWN Any Pre-Existing Lines (PICC,: No Is patient up to date on immun: Yes Last Flu: utd Last Pneumovax: utd Review of Systems Review of Systems Constitutional: no symptoms EENTM: no symptoms Cardiovascular: no symptoms Respiratory: no symptoms Gastrointestinal: no symptoms Genitourinary: as per HPI, hematuria Musculoskeletal: no symptoms Neurological: no symptoms Psychological: no symptoms Endocrine: no symptoms Hematological/Lymphatic: no symptoms Review of other systems All other systems reviewed and negative. Physical Exam Related Data Allergies: Coded Allergies: metoclopramide (Verified Allergy, Unknown, 08/08/19) nitrofurantoin (Verified Allergy, Unknown, 08/08/19) Triage Vital Signs Vital Signs Date Time Temp Pulse Resp B/P (MAP) Pulse Ox O2 Delivery O2 Flow Rate FiO2 08/08/19 13:56 97.5 62 18 142/68 96 Vital signs reviewed: Yes Physical Exam CONSTITUTIONAL Constitutional: well-developed, well-nourished HENT HENT: normocephalic, atraumatic, oropharynx clear/moist, nose normal HENT L/R: left ext ear normal, right ext ear normal EYES Eyes: PERRL, conjunctivae normal NECK Neck: ROM normal PULMONARY Pulmonary: effort normal, rales, rhonchi CARDIOVASCULAR Cardiovascular: regular rhythm, heart sounds normal, capillary refill normal, normal rate, murmur (2/6 SYS MURMUR) GASTROINTESTINAL Abdominal: soft, nontender, bowel sounds normal GENITOURINARY Genitourinary: other (UNCIRCUMCISED, WHEN I RETRACTED [place] HE HAD BLOOD AT URETHRAL MEATUS) SKIN Skin: warm, dry MUSCULOSKELETAL Musculoskeletal: ROM normal NEUROLOGICAL Neurological: alert, no gross motor or sensory deficits, other (ORIENTED TO NAME ONLY) PSYCHOLOGICAL Psychological: other (PT COMBATIVE AT TIMES, UNCOOPERATIVE) Results Laboratory Result Diagram: 08/08/19 1420 08/08/19 1420 Laboratory Laboratory Tests Test 08/08/19 16:12 08/08/19 14:20 Urine Color Brown (YELLOW) Urine Clarity Turbid (CLEAR) Urine pH 6 (5 - 7) Urine Specific Terry 1.020 (1.010-1.025) Urine Protein >=300 (NEGATIVE) Urine Glucose (UA) Negative (NEGATIVE) Urine Ketones Negative (NEGATIVE) Urine Blood Large (NEGATIVE) Urine Nitrite Negative (NEGATIVE) Urine Bilirubin Small (NEGATIVE) Urine Urobilinogen 0.2 mg/dL (0.2 - 1) Urine Leukocyte Esterase Trace (NEGATIVE) Urine RBC >50 /HPF (0-5) Urine WBC 0-5 /HPF (0-5) Urine Epithelial Cells Rare /LPF (NONE) Urine Bacteria None /HPF (NONE) White Blood Count 9.10 x10e3/uL (4.8-10.8) Red Blood Count 4.16 x10e6/uL (4.3-5.7) Hemoglobin 11.2 g/dL (14.0-18.0) Hematocrit 36.3 % (38.2-49.6) Mean Corpuscular Volume 87.3 fL (81-99) Mean Corpuscular Hemoglobin 26.9 pg (28-32) Mean Corpuscular Hemoglobin Concent 30.9 g/dL (31-35) Red Cell Distribution Width 15.8 % (11.7-14.4) Platelet Count 242 x10e3/uL (140-360) Neutrophils (%) (Auto) 54.7 % (38.7-80.0) Lymphocytes (%) (Auto) 18.6 % (18.0-39.1) Monocytes (%) (Auto) 8.0 % (4.4-11.3) Eosinophils (%) (Auto) 17.6 % (0.0-6.0) Basophils (%) (Auto) 0.8 % (0.0-1.0) Neutrophils # (Auto) 5.0 (2.1-6.9) Lymphocytes # (Auto) 1.7 (1.0-3.2) Monocytes # (Auto) 0.7 (0.2-0.8) Eosinophils # (Auto) 1.6 (0.0-0.4) Basophils # (Auto) 0.1 (0.0-0.1) Absolute Immature Granulocyte (auto 0.03 x10e3/uL (0-0.1) Prothrombin Time 16.8 seconds (11.9-14.5) Prothromb Time International Ratio 1.28 Activated Partial Thromboplast Time 33.1 seconds (23.8-35.5) Sodium Level 139 mmol/L (136-145) Potassium Level 3.4 mmol/L (3.5-5.1) Chloride Level 106 mmol/L (98-107) Carbon Dioxide Level 23 mmol/L (22-29) Anion Gap 13.4 mmol/L (8-16) Blood Urea Nitrogen 13 mg/dL (7-26) Creatinine 1.13 mg/dL (0.72-1.25) Estimat Glomerular Filtration Rate > 60 ML/MIN (60-) BUN/Creatinine Ratio 12 (6-25) Glucose Level 96 mg/dL (74-118) Calcium Level 9.5 mg/dL (8.4-10.2) Magnesium Level 1.9 MG/DL (1.3-2.1) Total Bilirubin 0.3 mg/dL (0.2-1.2) Aspartate Amino Transf (AST/SGOT) 25 IU/L (5-34) Alanine Aminotransferase (ALT/SGPT) 16 IU/L (0-55) Alkaline Phosphatase 60 IU/L (40-150) Creatine Kinase 306 IU/L (30-200) Creatine Kinase MB 2.40 ng/mL (0-5.0) Troponin I 0.007 ng/mL (0-0.300) B-Type Natriuretic Peptide 26.2 pg/mL (0-100) Total Protein 6.9 g/dL (6.5-8.1) Albumin 3.2 g/dL (3.5-5.0) Globulin 3.7 g/dL (2.3-3.5) Albumin/Globulin Ratio 0.9 (0.8-2.0) Lipase 48 U/L (8-78) Lab results reviewed: Yes Imaging Imaging results reviewed: Yes Impressions X-ray chest AP portable Comparison: None History: Blood in urine and stool. Pain to touch in abdomen. Findings: Central airways unremarkable. Heart size borderline enlarged. Atherosclerotic ectatic aorta. No definite pleural effusion. No pneumothorax. Bilateral lung infiltrates mostly interstitial linear reticular and peribronchial type with a few nodular opacities left more prominent than right. There is also retrocardiac left lung lobe opacity. Visualized skeletal structures are remarkable for osteopenia. Upper abdomen unremarkable. Impression: Bilateral lung infiltrates of interstitial and airspace type. Viral pneumonitis is not ruled out. Another process such as atypical pulmonary edema, and other infectious etiologies would also be in the differential diagnosis. Signed by: Phani Andrew MD on 08/08/2019 3:[address] of the abdomen and pelvis. Comparison: None Clinical History: Hematuria Technique: Helical CT scan of the abdomen and pelvis was performed. Intravenous contrast administration was not utilized. Oral contrast administration was not utilized. Coronal and sagittal reconstructions were generated from the raw data. Multiple images were submitted for interpretation. This exam was performed according to our departmental dose-optimization program which includes automated exposure control, adjustment of the mA and/or kV according to patient size Discussion: Inferior chest: Bilateral pulmonary parenchymal abnormality characterized by groundglass opacification and airspace consolidation most noticeable in the lingular lobe, the left lower lobe. There is presence of minimal honeycombing in the subpleural locations bilaterally. There is no pleural effusion. There is no pneumothorax. Visualized central airways are unremarkable. There is presence of multiple small lymph nodes in the prevascular region, pretracheal region, right and left hilar region, in the left and right paratracheal location, a few of them in the pulmonary marky are calcified. These do not meet the definition of lymphadenopathy by size criteria. There is patchy atherosclerotic calcification of the entire aortoiliac segment. There is aortic annulus calcification. There is coronary artery calcification. Heart size is enlarged. There is no pericardial effusion. There is no pleural effusion. Liver: Grossly unremarkable Spleen: Unremarkable Pancreas: Unremarkable Biliary tree and gallbladder: Unremarkable Adrenal glands: Unremarkable Kidneys and ureters: Right ureteric calculus measuring 8 mm across. Situated just beyond the UPJ. Small cortical renal cysts on the right side. The left kidney shows multiple radiodense calculi in the mid and lower poles on making the cast of the collecting system consistent with staghorn calculi. There is presence of mild hydroureter. There is presence of a calculus in the proximal ureter that measures approximately 10 mm across. The left kidney also seems to have a few cortical renal cysts, too small to characterize on this exam. The urinary bladder diverticuli. There is bladder wall thickening. This needs to be further investigated. There is a large prostate gland impinging on the bladder base with possible bladder outlet obstruction that might account for bladder wall thickening. Vasculature: As above Lymph nodes: The evaluation is limited in the absence of intravenous contrast medium. Bowel: Sliding hiatal hernia is noted. Pelvis: As above. Seminal vesicles unremarkable. Pelvic wall unremarkable. Peritoneum: Unremarkable Perineal compartments: unremarkable. Fluid: No free fluid Bones: Degenerative changes. No lytic or blastic lesions. Body wall: Unremarkable. 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 No bladder calculi. Bilateral lung infiltrates with left lingular and lower lobe consolidation that could represent pneumonia as described above. Mediastinal lymphadenopathy as described above. Signed by: Phani Andrew MD on 08/08/2019 4:26 PM Diagnostics Tests Diagnostic test(s) reviewed: Yes Procedures 12 Lead ECG Interpretation Mechanical Meter Tester: Interpreted by ED physician Date: August 08, 2019 Time: 14:17 Prior RANGE MANAGEMENT SPECIALIST tracings: reviewed Rhythm: sinus rhythm Rate: normal (64) QRS axis: normal Conduction: 1st degree T waves flattening: I, aVL Clinical Impression: abnormal ECG Critical Care Time Subsequent provider I assumed direction of critical care for this patient from another provider of my specialty. Assessment & Plan Assessment & Plan Final Impression: (1) Renal stones (2) Ureteral stone with hydronephrosis (3) Hematuria (4) Dementia (5) CHF (congestive heart failure) (6) UTI (urinary tract infection) (7) Pneumonia Assessment & Plan SPOKE WITH MARISELA WHO RECENTLY ADMITTED PT AT [facility], ALSO SPOKE WITH DR Luis Eduardo VELAZQUEZ Depart Disposition: ADMITTED Last Vital Signs Date Time Temp Pulse Resp B/P (MAP) Pulse Ox O2 Delivery O2 Flow Rate FiO2 08/08/19 15:50 65 18 130/55 99 08/08/19 13:56 97.5 Medications in the ED Quetiapine Fumarate 25 mg BID PO ; Start 08/08/19 at 17:00; Stop 09/07/19 at 16:59 Lorazepam 1 mg ONCE ONCE IV Last administered on 08/08/19at 16:41; Admin Dose 1 MG; Start 08/08/19 at 16:45; Stop 08/08/19 at 16:46; Status DC Piperacillin Sod/ Tazobactam Sod 50 ml @ 50 mls/hr Q6H IV ; Start 08/08/19 at 18:00; Stop 08/15/19 at 17:59 Azithromycin 250 ml @ 250 mls/hr Q24H IV ; Start 08/08/19 at 17:00; Stop 08/15/19 at 16:59 Iopamidol 74,000 mg STK-MED ONCE INJ ; Start 08/08/19 at 16:52; Stop 08/08/19 at 16:47; Status DC Sodium Chloride 250 ml @ ud STK-MED ONCE .ROUTE ; Start 08/08/19 at 16:52; Stop 08/08/19 at 16:47; Status DC Famotidine 20 mg Q12H IV ; Start 08/08/19 at 16:45; Stop 09/07/19 at 16:44; Status UNV Ondansetron HCl 4 mg Q4H PRN IV NAUSEA AND VOMITING; Start 08/08/19 at 16:45; Stop 09/07/19 at 16:44; Status UNV Sodium Chloride 500 ml @ 50 mls/hr Q10H ONCE IV ; Start 08/08/19 at 16:45; Stop 08/09/19 at 02:44; Status UNV CHELO OBANDO MD August 08, 2019 17:07
--- OUTSIDE RECORDS SUMMARY | 2019-08-08 17:25 | XMS REPORT ---
Author Author [facility] t Organization [facility] Address [address] [place] [address] Phone Unavailable Care Team Providers Care Jewish History Professor Name Role Phone Vernell OBANDO Attphys Unavailable Payers Payer Name Policy Type Policy Number Effective Date Expiration Date S ource Problems Condition Name Condition Details Condition Category Status Onset Date Resolution Date Last Treatment Date Treating Clinician Comments Source PNEUMONIA SYMPTOMS PNEU MONIA SYMPTOMS Active 07/13/[address] [facility] Diagnosis Active 2019-07-13 00:00:00 2019-07-13 05:11:[address] [facility] SEVERE SEPSIS, UTI, PNA, A FIB SEVERE SEPSIS, UTI, PNA, A FIB Active 07/13/[address] [facility] Diagnosis Active 2019-07-13 00:00:0 0 2019-07-25 21:48:[address] [facility] Heart failure, unspecified Hea rt failure, unspecified Active Problem 10/10/2016 Ashesh Daugherty Problem Active 2016-10-10 02:45:09 Ashhebert Severinoai Advance care planning Adva nce care planning Active Problem 10/10/2016 Ashesh Daugherty Problem Active 2016-10-10 02:45:09 Ashesh Daugherty Chronic obstructive pulmonary disease, unspecified RETIREMENT PLAN COUNSELOR D type Chronic obstructive pulmonary disease, unspecified COPD type Active Problem 10/10/2016 Ashesh Daugherty Problem Active 2016-10-10 02:45:09 Ashhebert Severinoai Polymyalgia rheumatica Poly myalgia rheumatica Active Problem 10/10/2016 Ashesh Daugherty Problem Active 2016-10-10 02:45:09 Ashesh Daugherty Allergic rhinitis, unspecified Allergic rhinitis, unspecified Active Problem 10/10/2016 Ashesh Daugherty Problem Active 2016-10-10 02:45:09 Ashhebert Severinoai SEVERE SEPSIS WITHOUT SEPTIC SHOCK SEVERE SEPSIS WITHOUT SEPTIC SHOCK Active [facility] Active 2019-07-25 21 :48:00 [facility] URINARY TRACT INFECTION, SITE NOT SPECIF URINARY TRACT INFECTION, SITE NOT SPECIF Active [facility] Active 2019-07-25 21:48:[address] [facility] PNEUMONIA, UNSPECIFIED ORGANISM PNEUMONIA, UNSPECIFIED ORGANISM Active [facility] Diagnosis Active 2019-07-25 21:48 :[address] [facility] Allergies, Adverse Reactions, Alerts Allergy Name Allergy Type Status Severity Reaction(s) Onset Date Inacti ve Date Treating Clinician Comments Source metoclopramide DA Active U 2016-04-21 00:00:00 [facility] Medications This patient has no known medications. Procedures This patient has no known procedures. Encounters Start Date/Time End Date/Time Encounter Type Admission Type Attendi [facility] Care Department Encounter ID Source 2019-08-08 17:25:15 Outpatient MHIEALT MHIEALT [id number] [facility] 2019-07-13 05:23:00 Inpatient E [facility]SE MED [id number] [facility] 2016-10-09 09:57:00 2016-10-09 09:57:00 [facility] [id number] [facility] Results Test Description Test Time Test Comments Results Result Comments Source CT ABDOMEN/PELVIS 2019-08-08 16:09:00 [place] [address] Patient Name: BASIM MORALES MR #: [id number] : 1930 Age/Sex: 89/M Req #: [id number] Adm Physician: Ordered by: CHELO OBANDO MD Report #: [id number] Location: ER Room/Bed: Procedure: [id number] CT/CT ABDOMEN/PELVIS WO Exam Date: 08/08/19 Exam Time: 1514 REPORT STATUS: Signed CT of the abdomen and pelvis. Comparison: None Clinical History: Hematuria Technique: Helical CT scan of the abdomen and pelvis was performed. Intravenous contrast administration was not utilized. Oral contrast administration was not utilized. Coronal and sagittal reconstructions were generated from the raw data. Multiple images were submitted for interpretation. This exam was performed according to our departmental dose-optimization program which includes automated exposure control, adjustment of the mA and/or kV according to patient size Discussion: Inferior chest: Bilateral pulmonary parenchymal abnormality characterized by groundglass opacification and airspace consolidation most noticeable in the lingular lobe, the left lower lobe. There is presence of minimal honeycombing in the subpleural locations bi laterally. There is no pleural effusion. There is no pneumothorax. Visualized central airways are unremarkable. There is presence of multiple small lymph nodes in the prevascular region, pretracheal region, right and left hilar region, in the left and right paratracheal location, a few of them in the pulmonary marky are calcified. These do not meet the definition of lymphadenopathy by size criteria. There is patchy atherosclerotic calcification of the entire aortoiliac segment. There is aortic annulus calcification. There is coronary artery calcification. Heart size is enlarged. There is no pericardial effusion. There is no pleural effusion. Liver: Grossly unremarkable Spleen: Unremarkable Pancreas: Unremarkable Biliary tree and gallbladder: Unremarkable Adrenal glands: Unremarkable Kidneys and ureters: Right ureteric calculus measuring 8 mm across. Situated just beyond the UPJ. Small cortical renal cysts on the right side. The left kidney shows multiple radiodense calculi in the mid and lower poles on making the cast of the collecting system consistent with staghorn calculi. There is presence of mild hydroureter. There is presence of a calculus in the proximal ureter that measures approximately 10 mm across. The left kidney also seems to have a few cortical renal cysts, too small to characterize on this exam. The urinary bladder diverticuli. There is bladder wall thickening. This needs to be further investigated. There is a large prostate gland impinging on the bladder base with possible bladder outlet obstruction that might account for bladder wall thickening. Vasculature: As above Lymph nodes: The evaluation is limited in the absence of intravenous contrast medium. Bowel: Sliding hiatal hernia is noted. Pelvis: As above. Seminal vesicles unremarkable. Pelvic wall unremarkable. Peritoneum: Unremarkable Perineal compartments: unremarkable. Fluid: No free fluid Bones: Degenerative changes. No lytic or blastic lesions. Body wall: Unremarkable. 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 No bladder calculi. Bilateral lung infiltrates with left lingular and lower lobe consolidation that could represent pneumonia as described above. Mediastinal lymphadenopathy as described above. Signed by: Phani Thomas MD on 08/08/2019 4:26 PM Dictated By: PHANI THOMAS MD 25 Transcribed By: JOSE JUAN on 08/08/191625 COPY TO: CHELO OBANDO MD CHEST SINGLE (PORTABLE) 2019-08-08 15:36:00 [place] [address] Patient Name: BASIM MORALES MR #: [id number] : 1930 Age/Sex: 89/M Req #: [id number] Adm Physician: Ordered by: CHELO OBANDO MD Report #: [id number] Location: ER Room/Bed: Procedure: DX/CHEST SINGLE (PORTABLE) Exam Date: 08/08/19 Exam Time: 1500 REPORT STATUS: Signed X-ray chest AP portable Comparison: None History: Blood in urine and stool. Pain to touch in abdomen. Findings: Central airways unremarkable. Heart size borderline enlarged. Atherosclerotic ectatic aorta. No definite pleural effusion. No pneumothorax. Bilateral lung infiltrates mostly interstitial linear reticular and peribronchial type with a few nodular opacities left more prominent than right. There is also retrocardiac left lung lobe opacity. Visualized skeletal structures are remarkable for osteopenia. Upper abdomen unremarkable. Impression: Bilateral lung infiltrates of interstitial and airspace type. Viral pneumonitis is not ruled out. Another process such as atypical pulmonary edema, and other infectious etiologies would also be in the differential diagnosis. Signed by: Phani Thomas MD on 08/08/2019 3:40 PM Dictated By: PHANI THOMAS MD 39 Transcribed By: JOSE JUAN on 08/08/190 COPY TO: CHELO OBANDO MD EMERGENCY ROOM PROFILE 2018-09-12 10:41:00 Test Item DIAGNOSIS (test code = DIAG) SPECIMENS RCVED SPECIMEN RECEIVED B-TYPE NATRIURETIC [id number] 07:34:00* Test Item Value Reference Range Interpretation Comments B-TYPE NATRIURETIC PEPTIDE (test code = BNP) < 30.00 PG/ML 0.00-100 .00 N COMPREHENSIVE METABOLIC [id number] 06:39:00* Test Item Value Reference Range Interpretation [...] LIPINDEX) 1 NORMAL <50 MG Index/DL 1 [facility] COMPREHENSIVE METABOLIC [id number] 06:37:00* Test Item Value Reference Range Interpretation [...] MG Index/DL 1 NOR MAL PT AND [id number] 06:31:00* Test Item Value Reference Range Interpretation [...] TO POSSIBLE HEPARINCONTAMINATION - XR CHEST 1 [id number] 06:31:00 FAX: Paul Cardona DO [phone] [place]: E St: PRE Patient Na me: BASIM MORALES Unit No: [id number] EXAMS: CPT CODE: [id number] XR CHEST 1 V [id number] EXAM: CHEST ONE VIEW INDICATION: COUGH LOCATION: B2 COMPARISON: [facility] 2016 TECHNIQUE: AP view of the chest [...] CC: Paul Cardona DO Dictated Date/Time: 09/12/2018 (4186)Technologist: Yamilex Brunson Transcribed Date/Time: 09/12/2018 (0631) By: Claudia Orig Print D/T: S: 09/12/2018 (0634) LEEROY Alpa NAME: [address] PHYS: Paul Roberto, [place] [address] : 1930 AGE: 88 SEX: M LOC: B.ERS PHONE #: [phone] EXAM DATE: 09/12/2018 STATUS: PRE ER FAX #: [phone] RAD NO: DC Dt: PAGE 1 Signed Report TROPONIN I [id number] 06:30:00* Test Item Value Reference Range Interpretation [...] of temporal changes in troponin levelscharacteristic of IA. CBC W/AUTO [id number] 06:22:00* Test Item Value Reference Range Interpretation [...]
--- OUTSIDE RECORDS SUMMARY | 2019-08-08 17:25 | XMS REPORT | Clinical Summary ---
Author Author [facility] Address Unknown Phone Unavailable Care Team Providers Care Lead Recoverer Name Role Phone Kari Clay DO PCP [phone] Allergies Comments Active Allergy Reactions Severity Noted [...] xxxxxxxxxxx Medicare B CIGNA [employer] CIGNA xxxxxxxxxxx [facility] Contracted NG ALL [phone]
[2019-08-08 17:54] VITALS: BP 156/65
[2019-08-08 17:56] VITALS: BP 156/65
[2019-08-08] MEDS ORDERED: PIPER-TAZ 3.375 GM 50 ML IV SCH ×3 (18:00→22:00)
[2019-08-08 18:04] VITALS: BP 156/65
[2019-08-08] MEDS ORDERED: CARDIZEM CD180 MG PO (18:28)
[2019-08-08] MEDS ORDERED: AMIODARONE HCL200 MG (18:28)
[2019-08-08] MEDS ORDERED: ARICEPT5 MG PO (18:29)
[2019-08-08] MEDS ORDERED: XARELTO10 MG (18:29)
[2019-08-08] MEDS ORDERED: OMEPRAZOLE40 MG (18:30)
[2019-08-08] MEDS ORDERED: SIMVASTATIN40 MG PO (18:31)
[2019-08-08] MEDS ORDERED: ACETAMINOPHEN325 M1 PO (18:34)
[2019-08-08] MEDS ORDERED: TEMAZEPAM15 MG (18:34)
--- NOTE | 2019-08-08 19:20 | NUR ---
BEDSIDE SHIFT REPORT RECEIVED FROM DAY RN. PT RESTING IN BED IN SEMI-HANLEY POSITION. REPIRATIONS ARE REGULAR AND UNLABORED. PT IS ORIENTED X1. REORIETNTED TO TIME AND PLACE. PT TAKING COVERS OFF AND PUTTING COVERS ON. PT MUMBLING ABOUT COLLEGE AND THINGS HE NEEDS TO DO AT HOME. VOIDING PER URINAL WITH ASISTANCE.20 G IV IN LEFT AC. D5 NS +20 KCLINFUSING AT 75 ML/HR.ATIVAN LAST GIVEN IN ER AT 1641.PT TO HAVE CT SCAN OF CHEST AND ABD. PT NPO UNTIL AFTER SCAN DONE AT 2230.TELE ON. PT PICKING MONITOR UP AND TOUCHING HIS LEADS.COOPERATIVE WITH CARE AFTER ATIVAN. DENIES PAIN. SITTER AT BEDSIDE. CALL LIGHT WITHIN REACH.BED IN LOW POSITION.
[2019-08-08] MEDS ORDERED: DOCUSATE SODIUM 100 MG CAP PO PRN (19:45)
[2019-08-08] MEDS ORDERED: HYDRALAZINE HCL 20 MG/ML VIAL IV PRN (19:45)
[2019-08-08 20:00] VITALS: BP 159/90
[2019-08-08] MEDS ORDERED: POTASSIUM CHLORIDE 20 MEQ TAB CR PO SCH (20:00)
[2019-08-08] MEDS ORDERED: SODIUM CHLORIDE 0.9% 1000ML 1,000 ML IV SCH (20:00)
--- NOTE | 2019-08-08 20:00 | NUR ---
DR ANTONIO HERE TO SEE PT. NEW ORDERS RECEIVED. PT NOW NPO FOR CT SCANS. PT CONTINUES TO BE CONFUSED AND EASILY AGITATED. PT OBEYS COMMANDS AFTER ATIVAN WHICH WAS GIVEN IN ED. DR ANTONIO INSTRUCTED TO GIVE SEROQUEL AND HE WOULD BE COOPERATIVE. PT HAS HX ALZHEIMERS,DEMENTIA, AND SUNDOWNS AT HS.CT CONTACTED AND GIVEN OK TO GIVE SEROQUEL WITH WATER SO PT COOPERATIVE DURING XRAYS.SITTER AT BEDSIDE. PT SUDDENLY SITS UP TRYING TO GET OUT OF BED AND VERBAKIZES GOING HOME OR TO GO TO WORK. BED ALARM ON. RN ROUNDING FREQUENTLY TO MONITOR PT .
[2019-08-08 21:00] VITALS: BP 159/90
[2019-08-08] MEDS: D5NS/KCL 20MEQ 1,000 ML IV SCH (21:08)
--- NOTE | 2019-08-08 21:28 | History and Physical ---
CHIEF COMPLAINT: Hematuria. HISTORY OF PRESENT ILLNESS: An 89-year-old male with known history of atrial fibrillation, on anticoagulation; acid reflux; hyperlipidemia; and Alzheimer dementia, who came in from home with reports of recent hematuria. The patient's family is not at bedside and information is being obtained from the ED note as well as the nursing staff. The patient was recently admitted at [facility], was treated for underlying pneumonia and atrial fibrillation. At that time, I took care of him and he was discharged on oral Xarelto due to high risk for CHADS2 score. At that time, Cardiology was notified and was evaluated accordingly. His heart rate improved and he was discharged on anticoagulation. The patient was discharged stable with no issues. He went back to his daughter's care as she is the primary care physician. According to the reports, the patient now presents with complaints of blood per urine that began today. No reports of any chest pain or any palpitations. No blood per rectum. No reports of cough, congestion, or any fever or any recent travel. The patient is seen and evaluated at bedside on the medical floor. He is currently very stable. He is calm. He is quiet. He has received some Ativan for his combativeness. He has a sitter at bedside. REVIEW OF SYSTEMS: Pertinent positive for hematuria. Unable to obtain the rest of 14-point review of systems due to the patient's baseline dementia. ALLERGIES: METOCLOPRAMIDE AND NITROFURANTOIN. HOME MEDICATIONS: 1. Amiodarone. 2. Diltiazem. 3. Aricept. 4. Omeprazole. 5. Xarelto. 6. Simvastatin. 7. Temazepam. PAST MEDICAL HISTORY: Atrial fibrillation, Alzheimer dementia, hypertension, history of nephrolithiasis, and hyperlipidemia. PAST SURGICAL HISTORY: According to the records, he has had AAA repair in the past and he has had renal stone removals. FAMILY HISTORY: Unable to obtain. SOCIAL HISTORY: I do not know his smoking, drug, or alcohol history. There is no family at bedside to know. He lives with his daughter. PHYSICAL EXAMINATION: VITAL SIGNS: Temperature is 97.3, pulse 65, respiratory rate is 18, blood pressure 156/65, and pulse ox 97% on room air. GENERAL: Not in acute distress, alert and oriented x2. He has baseline dementia. PULMONARY: Clear to auscultation bilaterally. No wheezing, rales, or rhonchi. No crackles appreciated. CARDIOVASCULAR: Positive S1, S2. No murmurs, rubs, or gallop. ABDOMEN: Soft, nondistended, and nontender to palpation. Bowel sounds present. MUSCULOSKELETAL: He is currently at his baseline, noncooperative for examination. NEUROLOGIC: Baseline dementia, noncooperative. SKIN: Intact, warm to touch. Good cap refill. PSYCHIATRIC: Baseline dementia. EXTREMITIES: No edema. Good range of motion throughout. LABORATORY DATA: Labs show white count 9.1, hemoglobin 11.2, hematocrit 36, platelets of 242. Coagulation, PT 16, INR 1.28, and PTT 33. Chemistry, sodium 139, potassium 3.4, chloride 106, bicarb 23, anion gap of 13, BUN is 13, creatinine is 1.1, glucose 96, calcium 9.5, and magnesium 1.9. Total bilirubin 0.2, AST 25, ALT 16, and alkaline phosphatase 60. CK 306. Troponin 0.007. BNP 26. Total protein 6.9, albumin 3.2, and lipase is 48. Urinalysis, specific gravity of 1.020, rbc's greater than 50, trace leukocyte esterase. Coronavirus PCR pending. MICROBIOLOGY DATA: Prior urine cultures are pending. DIAGNOSTIC STUDIES: CT of the abdomen and pelvis shows right ureteral calculus, partially obstructed, multiple left renal calculi, possibly staghorn calculus with proximal ureteral calculus with partial obstruction. No bladder calculi. Bilateral lung infiltrate with left lingular and lower lobe consolidation, which could represent pneumonia. Mediastinal lymphadenopathy could be reactive. IMPRESSION: 1. Nephrolithiasis with underlying hematuria. 2. Atrial fibrillation, on anticoagulation. 3. Mild rhabdomyolysis. 4. Concerns for community-acquired pneumonia. 5. Baseline dementia. 6. Hypertension. PLAN: 1. At this time, as far as his hematuria, his hemoglobin is very stable at 11.2. CT imaging was noted. We did go ahead and consult with Dr. Girard, Urology to come and evaluate further. Hold all anticoagulation therapy. Monitor hemoglobin levels. In relation to the atrial fibrillation, we will go ahead and get Cardiology to come and evaluate him. He is on anticoagulation, which will have to be discontinued. Continue with rate control medications. His heart rate is very stable at this time. 2. Mild rhabdomyolysis. We will continue with IV fluids. As for his underlying pneumonia, this patient has been treated earlier in the month of July, this could be all secondary to chronic interstitial disease. We will go ahead and just give him some IV Zosyn for now. Monitor closely. He does not have a white count or any fever, but we will monitor on IV antibiotics. 3. As far as his dementia, we will go ahead and put him on Seroquel 25 mg p.o. b.i.d. and continue with Aricept. 4. As far as his blood pressure, resume same antihypertensive medications, p.r.n. hydralazine. For nutrition, he will be on IV fluids. He will be on a heart healthy diet. 5. REBECA hoses for DVT prophylaxis. No Lovenox for underlying hematuria. CONSULTANTS: Involved Cardiology and Urology. He will need a sitter at bedside as the patient can get very combative and noncooperative on exam. I discussed the plan of care with nursing staff. MD CORTEZ Hall/LESTER /[id number]
--- NOTE | 2019-08-08 23:00 | NUR ---
PT RETURNED FROM CT SCANS. PT COOPERATIVE . SITTER AT BEDSIDE. PIV IN LEFT AC PATENT WITH HEALTHY SITE. PT CONTINUES TO PULL AT MONITOR, PULL AT IV. IV ALARMING DUE TO PT KEEPING ARM BENT.IV ARM BOARD ON TO PREVENT PT FROM BENDING LEFT ARM.PT MUMBLING ABOUT WORK AND FAMILY.PT TAKING COVERS OFF,TRYING TO CLIMB OUT OF BED, PUSHING AIDES AWAY BUT COOPERATIVE AT TIMES.PT CLOSING HIS EYES THEN SIT UP AND CLIMB TO SIDE RAIL.MORE CONFUSED EVENING PROGRESSES.VS STABLE.
--- NOTE | 2019-08-08 23:32 | Diagnostic Imaging Report ---
EXAM: CT Chest without contrast and CT Abdomen and Pelvis WITH contrast INDICATION: Hematuria COMPARISON: Abdominal CT 08/08/2019. TECHNIQUE: The chest abdomen and pelvis were scanned utilizing a multidetector helical scanner from the neck base to the pubic symphysis . The chest was scanned before IV contrast administration. The abdomen and pelvis were scanned before and after administration of IV contrast. Coronal and sagittal reformations were obtained. Hematuria (CT Urogram) protocol was performed for the abdomen and pelvis. Scan was performed pre- in supine position and nephrogenic/excretory phase with a split bolus in prone position. IV CONTRAST: 150 mL of Isovue 370 ORAL CONTRAST: None COMPLICATIONS: None RADIATION DOSE: Total DLP: 1281 mGy*cm Estimated effective dose: (DLP x 0.015 x size factor) mSv CTDIvol has been reviewed. It is below the limits set by the Radiation Protocol Committee (RPC). Dose modulation, iterative reconstruction, and/or weight based adjustment of the mA/kV was utilized to reduce the radiation dose to as low as reasonably achievable. FINDINGS: LINES and TUBES: None. LUNGS/AIRWAYS/PLEURA: Left basilar consolidation. Right basilar groundglass haziness. Peripheral/subpleural reticular opacities in the nondependent lower lungs. Mild honeycombing in the mid and upper lung periphery. CARDIOMEDIASTINUM: Mild cardiomegaly. Coronary artery calcifications. No suspicious adenopathy. Dense aortic calcifications and triple vessel coronary artery calcifications. Aortic valve calcifications. Patulous esophagus. HEPATOBILIARY: No focal hepatic lesions. No biliary ductal dilation. GALLBLADDER: No radio-opaque stones or sludge. No wall thickening. SPLEEN: No splenomegaly. PANCREAS: No focal masses or ductal dilatation. ADRENALS: No adrenal nodules KIDNEYS/URETERS: Kidneys enhance symmetrically. No solid mass lesions. Nonobstructive staghorn calculus and left renal inferior pole approximately 2.4 cm. Mild left pelviectasis and proximal ureterectasis with gradual tapering of the left ureter distally. No obstructing lesions. Tiny left renal superior pole simple cyst. GI TRACT: Moderate fluid-filled sliding gastric hiatal hernia.. No abnormal distention, wall thickening, or evidence of bowel obstruction. Appendix is normal. PELVIC ORGANS/BLADDER: Multiple urinary bladder wall cysts versus diverticula. Moderate prostatomegaly. No nodular soft tissue densities in the bladder or in the urinary tract. LYMPH NODES: No lymphadenopathy. VESSELS: Bilateral iliofemoral grafts appear patent. 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 PERITONEUM / RETROPERITONEUM: No free air or fluid. BONES: Mild to moderate compression fracture deformities of T12-L5. Laminectomy at L4 and L5. Low bone mineral density. Mild canal stenosis at T12. SOFT TISSUES: Left inguinal hernia repair intact. IMPRESSION: 1. A 2.4 cm nonobstructive left renal inferior pole staghorn calculus. 2. Urinary bladder cystitis cystica and/or multiple small urinary bladder diverticula. Moderate prostatomegaly. 3. Left lower lobe consolidative pneumonia. In the setting of large sliding gastric hiatal hernia and patulous esophagus, aspiration pneumonia is a possibility. There are also pulmonary fibrotic changes. 4. Aortic valve and coronary artery calcific disease. 5. Mild to moderate compression fracture deformities of T12-L5. Mild canal stenosis at T12 6. 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 Signed by: Tucker Osei DO on 08/08/2019 11:29 PM
[2019-08-08] MEDS: SIMVASTATIN 40 MG TAB PO SCH (23:44)
[2019-08-08] MEDS: DONEPEZIL HCL 5 MG TAB PO SCH (23:44)
[2019-08-08] MEDS ORDERED: POTASSIUM CHLORIDE 20 MEQ TAB CR PO ONE (23:45)
[2019-08-09] VITALS (16 sets, daily range): BP systolic 108–168; BP diastolic 63–104
[2019-08-09] MEDS: ACETAMINOPHEN 325 MG TAB PO PRN ×2 (02:42→20:35)
[2019-08-09] MEDS: MELATONIN 5 MG TABLET PO PRN (02:42)
[2019-08-09] MEDS ORDERED: LORAZEPAM INJ 2 MG/ML VIAL IV ONE (03:00)
--- NOTE | 2019-08-09 03:10 | NUR ---
DR ANTONIO CALLED PT BECOMING MORE AND MORE AGITATED. PT PUSHING STAFF AWAY PT PULLING AT IV AND HEART MONITOR. PT VOIDING PER URINAL. SITTER ASSIT WITH URINAL. PT THREW URINAL WITH URINE AT SITTER. PT HAD HEART MONITOR AND THROWING IT AT STAFF. RN CALLED PHYSICIAN AND NEW ORDER RECEIVED FOR ATIVAN. PT REQUIRING 3 STAFF TO BE IN ROOM TO KEEP HIM FROM HURTING HIMSELF AND STAFF.VS REMAIN STABLE. REORINET TO TIME AND PLACE. FAMILY CALLED BUT NO ANSWER. WILL GIVE ATIVAN ORDERED.
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
[2019-08-09] MEDS ORDERED: ZIPRASIDONE 20 MG VIAL IM STA (04:34)
--- NOTE | 2019-08-09 05:30 | NUR ---
REPORT CALLED TO MICU MELLY ARCHER. PT TRANSFERRED TO MICU WITH BELONGINGS PER DR ANTONIO ORDER. PT MORE COOPERATIVE AFTER NEW MED ORDERED AND GIVEN BY MICU NURSE. PT COOPERATIVE DURING TRANSFER IN BED BUT CONTINUES TO GET UP TO CRAWL OUT OF BED. DAUGHTER HAS NOT CALLED BACK.FIBRE COMPOSITE TECHNICIAN AND CHARGE NURSE AWARE.
[2019-08-09 07:36] LABS: BASOPHILS # (AUTO) 0.1 (0.0-0.1); BASOPHILS % 0.7 % (0.0-1.0); EOSINOPHILS # (AUTO) 1.5 (0.0-0.4); EOSINOPHILS % 17.1 % (0.0-6.0); HEMATOCRIT 35.3 % (38.2-49.6); HEMOGLOBIN 10.8 g/dL (14.0-18.0); LYMPHOCYTES # (AUTO) 1.2 (1.0-3.2); LYMPHOCYTES % 13.1 % (18.0-39.1); MEAN CORPUSCULAR HEMOGLOBIN 26.4 pg (28-32); MEAN CORPUSCULAR HGB CONC 30.6 g/dL (31-35); MEAN CORPUSCULAR VOLUME 86.3 fL (81-99); MONOCYTES # (AUTO) 0.8 (0.2-0.8); MONOCYTES % 8.5 % (4.4-11.3); NEUTROPHILS # (AUTO) 5.3 (2.1-6.9); NEUTROPHILS % 60.1 % (38.7-80.0); PLATELET COUNT 197 x10e3/uL (140-360); RED BLOOD COUNT 4.09 x10e6/uL (4.3-5.7); RED CELL DISTRIBUTION WIDTH 15.5 % (11.7-14.4)
[2019-08-09 07:56] LABS: ALANINE AMINOTRANSFERASE 16 IU/L (0-55); ALBUMIN/GLOBULIN RATIO 0.8 (0.8-2.0); ALKALINE PHOSPHATASE 60 IU/L (40-150); ANION GAP 12.5 mmol/L (8-16); BLOOD UREA NITROGEN 8 mg/dL (7-26); BUN/CREATININE RATIO 8 (6-25); CALCIUM 9.1 mg/dL (8.4-10.2); CARBON DIOXIDE 23 mmol/L (22-29); CHLORIDE 109 mmol/L (98-107); CREATININE, SERUM 0.95 mg/dL (0.72-1.25); EST GLOMERULAR FILTRATION RATE > 60 ML/MIN (60-); GLUCOSE 110 mg/dL (74-118); POTASSIUM 3.5 mmol/L (3.5-5.1); SODIUM 141 mmol/L (136-145)
[2019-08-09] MEDS ORDERED: PIPER-TAZ 3.375 GM 50 ML IV SCH (08:00)
[2019-08-09 08:13] LABS: CREATINE KINASE 238 IU/L (30-200)
[2019-08-09] MEDS: FAMOTIDINE 20 MG/2 ML VIAL IV SCH ×2 (08:17→20:46)
[2019-08-09] MEDS: AMIODARONE HCL 200 MG TAB PO SCH (08:27)
[2019-08-09] MEDS: DILTIAZEM HCL 180 MG CAP ER PO SCH (08:27)
[2019-08-09 10:38] LABS: CHOL/HDL RATIO 3.2 (3.9-4.7); CHOLESTEROL 168 MD/DL (0-199); HDL CHOLESTEROL 53 MG/DL (40-60); LDL CHOLESTEROL 86 MG/DL (60-130); TRIGLYCERIDES 147 MG/DL (0-149)
[2019-08-09] MEDS ORDERED: ZIPRASIDONE 20 MG VIAL IM ONE (10:55)
[2019-08-09] MEDS: D5NS/KCL 20MEQ 1,000 ML IV SCH (11:26)
--- NOTE | 2019-08-09 12:04 | NUR ---
Called [employer]'s answering service regarding new consult. spoke to Emma, Emma stated, "I will send the information to the physician now."
[2019-08-09 15:37] LABS: CREATINE KINASE 228 IU/L (30-200)
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
--- NOTE | 2019-08-09 15:56 | Consultation ---
DATE OF CONSULTATION: Urology Consultation REASON FOR CONSULTATION: Gross hematuria. HISTORY OF PRESENT ILLNESS: Juan Priest is an 89-year-old man with a previous urological history of having an open kidney stone surgery approximately 50 years ago. The patient has not had any recent urologist for some time, his last urologist was [facility] the [facility]. The patient has had problems with paroxysmal atrial fibrillation requiring Xarelto. The patient reported to emergency room yesterday with severe gross hematuria. Urological consultation was subsequently sought. The patient is demented and all information is obtained from discussion with the patient's daughter, who is at his bedside. It is unclear whether the patient has had previous prostatic procedures or evaluation for hematuria in the past. The patient was at [facility] recently with pneumonia and had a urinary tract infection, which was treated as well. The daughter does not know if there was any workup, but he was never told that he had stones or any other issues. PAST MEDICAL AND SURGICAL HISTORY: 1. Paroxysmal atrial fibrillation. 2. Gastroesophageal reflux disease. 3. Hyperlipidemia. 4. Alzheimer's dementia. 5. Recurrent pneumonia. 6. Status post nephrolithotomy remotely in the past. 7. Status post abdominal aortic aneurysm repair. ALLERGIES: METOCLOPRAMIDE AND NITROFURANTOIN. SOCIAL HISTORY: The patient does not smoke, drink, or use any drugs. He did have a smoking history until about age 41. 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 FAMILY HISTORY: Noncontributory to the active urological problems. REVIEW OF SYSTEMS: Discussed as above history of present illness, past medical history, and otherwise negative for all systems according to the daughter. PHYSICAL EXAMINATION: GENERAL: Elderly confused man lying in bed, in no apparent distress. He is currently afebrile. VITAL SIGNS: Currently stable. ABDOMEN: Soft, nondistended, and nontender without costovertebral angle tenderness. Kidneys not palpable without hepatosplenomegaly. No obvious evidence of hernia. There is a midline scar and there is a scar in his back consistent with prior stone surgery. GENITOURINARY: Testes descended bilaterally. The right testis is more atrophic than the left testis. The patient has an uncircumcised male phallus with phimosis. Digital rectal examination is deferred at the present time. The diaper currently has yellow urine out and is not bloody. For the remaining physical examination systems, please refer to the admission history and physical on the chart. LABORATORY STUDIES: CT scan of the abdomen and pelvis was done with contrast only and reveals a 2.4 cm Staghorn stone in the left lower pole and mild left pelviectasis and proximal ureterectasis, no ureteral stone. There is a small left renal cyst in the upper pole. There is also note of aortic valve and coronary artery calcifications. Multiple urinary bladder diverticula were noted and prostatomegaly was also noted. White blood cell count is 8780, hemoglobin 10.8, platelets 197,000. The patient's potassium was low yesterday at 3.4, it is normal today. His creatinine is normal at 0.95. The patient's urinalysis showed greater than 50 RBCs. Urine culture is positive for gram-negative bacilli with sensitivity pending. ASSESSMENT: 1. Gross hematuria that seems to be improving. 2. Large left Staghorn nephrolithiasis. 3. Recurrent urinary tract infections. 4. Atrophic testes. 5. Phimosis. 6. Bladder diverticula. 7. Benign prostatic hyperplasia. 8. Left renal cyst. 9. Left hydronephrosis of currently unclear etiology. 10. Hypokalemia. 11. Anemia. 12. Coagulopathy due to anticoagulants for atrial fibrillation. PLAN: 1. I recommend decreasing the Zosyn due to the fact the patient is 89 years old. 2. I recommend awaiting the urine culture and sensitivity and adjusting the antibiotics accordingly. 3. Need cardiac clearance for general anesthesia for cystoscopy with retrograde pyelograms, stone management procedure etc. 4. For now, I recommend holding blood thinners until cystoscopy is performed and we ensure the patient has no bladder cancer. 5. I discussed with the patient's daughter at length the risks of doing a surgery or any other procedure on anybody his age and also the risks of not doing anything and having gross hematuria recurrent. Thank you very much for involving us in care of your patient. We will be happy to follow along with you as well as an outpatient. Graham Girard MD OH/MODL /[id number]
--- NOTE | 2019-08-09 17:00 | NUR ---
Patient's daughter, Terrie Jordan, provided out of Hospital signed forms, In Hospital DNR forms, Power of Logistics Analytics Manager, and medical power of workers compensation attorney. Nurse called Dr. Crawford for orders. Dr Crawford stated that he will check the forms and speak to the patient's POA, Terrie Jordan to determine what needs to done.
[2019-08-09] MEDS: PIPERACILLIN/TAZO 2.25 GM 50 ML IV SCH (17:31)
[2019-08-09] MEDS: QUETIAPINE FUMARATE 25 MG TAB PO PRN (18:13)
--- NOTE | 2019-08-09 18:46 | Consultation ---
DATE OF CONSULTATION: Cardiology Consultation. HISTORY OF PRESENT ILLNESS: This is an 89-year-old man with a history of Alzheimer's dementia, paroxysmal atrial fibrillation, hypertension, hyperlipidemia, history of nephrolithiasis, who presented with hematuria. He has a recent admission for pneumonia at [facility]. He was on anticoagulation as an outpatient. REVIEW OF SYSTEMS: Unable to be obtained. PAST MEDICAL HISTORY: As stated above in the HPI. PAST SURGICAL HISTORY: AAA repair. PAST FAMILY HISTORY: Noncontributory. SOCIAL HISTORY: No illicit drug, alcohol, or tobacco use. ALLERGIES: METOCLOPRAMIDE, NITROFURANTOIN. CURRENT MEDICATIONS: See medication reconciliation form. PHYSICAL EXAMINATION: VITAL SIGNS: Temperature 96.4, heart rate 66, respirations are 16, blood pressure is 162/65, ox saturation 99% on room air. GENERAL: Well-appearing elderly man, lying comfortably in bed. Not oriented, mildly agitated. HEAD: Normocephalic and atraumatic. EYES: Extraocular muscles are intact. Conjunctivae clear. NECK: No JVD. No bruits. CARDIOVASCULAR: Regular rate and rhythm. LUNGS: Clear to auscultation. ABDOMEN: Soft, nontender, nondistended. EXTREMITIES: No edema. NEUROLOGIC: Moving all extremities spontaneously. LABORATORY DATA: Reviewed. Hemoglobin 10.8, creatinine 0.95. Troponins negative. BMP is 26. Potassium 3.5. INR is 1.2. Urine shows greater than 50 RBCs. ECG and telemetry monitoring revealed normal sinus rhythm. IMPRESSION: 1. Hematuria. 2. Nephrolithiasis. 3. Paroxysmal atrial fibrillation. 4. Dementia. 5. Hypertension. RECOMMENDATIONS: Continue to hold anticoagulation giving anemia and hematuria. Continue rate-controlling medications with diltiazem and amiodarone. If blood pressure remains elevated, can start low-dose antihypertensive however at this point in time seems appropriate for his age. Continue hematuria treatment per primary team. Otoniel Estevez DO BM/MODL /[id number]
--- NOTE | 2019-08-09 19:27 | Consultation ---
DATE OF CONSULTATION: 08/09/2019 Psychiatric consultation. REASON FOR CONSULTATION: To evaluate the patient's psychosis and dementia. HISTORY OF PRESENT ILLNESS: The patient is an 89-year-old male admitted to the hospital for CHF. Psychiatric consultation is called to evaluate the patient's psychosis. As per medical record, the patient has history of AFib, Alzheimer dementia, hypertension, nephrolithiasis, and hyperlipidemia. Psychiatric consultation is called to evaluate the patient's psychosis. Before evaluation, which was done by Dr. Morrison today, I spoke to the attending, who reported that the patient has been very agitated and p.r.n. medication has been added and he has been getting p.r.n. IM medication. Dr. Morrison came today and spoke to the patient as well as the daughter who is in the room. The patient is confused and unable to answer any questions . As per the daughter, the patient is confused at baseline at home. While he is in the hospital, he has been more increasingly confused and hitting staff. He has been visually hallucinating. Daughter is concerned for his mental status. The patient has dementia for the last 10 years. PAST PSYCHIATRIC HISTORY: He has dementia for the last 10 years. He was noted does not drink alcohol or use any drugs. FAMILY HISTORY: None. SOCIAL HISTORY: The patient lives with his daughter. MENTAL STATUS EXAM: The patient is elderly male. He is alert and awake. He is confused. Affect is blunt. Psychomotor state is restless. Insight and judgment are impaired. Memory appears to be grossly impaired and unable to report suicidal or homicidal ideation. The patient has been having intermittent visual hallucinations. CURRENT MEDICATIONS: 1. Potassium. 2. Diltiazem. 3. Amiodarone. 4. Famotidine. 5. Xanax. 6. Aricept 10 mg p.o. at bedtime. 7. Seroquel 25 mg p.o. b.i.d. 8. Melatonin. 9. Acetaminophen. 10. Zosyn. 11. Docusate. 12. Hydralazine. 13. Ondansetron. CURRENT LABORATORY DATA: WBC 8.78, RBC 4.09, hemoglobin 10.8, hematocrit 35.3, platelets 197. Sodium 141, potassium 3.5, chloride 109, CO2 of 23, BUN 8, and creatinine 0.95. AST 24, ALT 16. ASSESSMENT: 1. Unspecified psychosis. 2. Unspecified dementia with behavior disturbances. PLAN OF TREATMENT: 1. Continue Aricept 10 mg p.o. at bedtime. 2. Add Haldol 2 mg IV q.6 hours as needed. 3. Seroquel 25 mg p.o. q.6 hours as needed. 4. Adjust Seroquel 25 mg p.o. t.i.d. to 25 mg p.o. q.12 hours. 5. Monitor for agitation. 6. Thank you for this consultation. 7. Dr. Morrison spoke to the daughter and she agrees for psych to be on case and adjust with medication for agitation. Dictated by Yenifer Dotson PA-C Lucho Morrison MD QTV/MODL /[id number]
[2019-08-09] MEDS: HALOPERIDOL LACTATE 5 MG/ML VIAL IM PRN (20:45)
[2019-08-09] MEDS: QUETIAPINE FUMARATE 25 MG TAB PO SCH (20:46)
[2019-08-09] MEDS: SIMVASTATIN 40 MG TAB PO SCH (20:46)
[2019-08-09] MEDS: DONEPEZIL HCL 5 MG TAB PO SCH (20:46)
--- NOTE | 2019-08-09 20:46 | NUR ---
PATIENT TOOK PO MEDS SCHEDULED WITH PUDDING, HE GOT AGITATED AND COMBATIVE; PRN HALDOL GIVEN, WILL CONTINUE TO MONITOR.
[2019-08-10] VITALS (16 sets, daily range): BP systolic 108–140; BP diastolic 77–110
[2019-08-10] MEDS: D5NS/KCL 20MEQ 1,000 ML IV SCH ×2 (04:29→14:36)
[2019-08-10 07:12] LABS: HEMATOCRIT 37.2 % (38.2-49.6); HEMOGLOBIN 10.4 g/dL (14.0-18.0); MEAN CORPUSCULAR VOLUME 96.6 fL (81-99); PLATELET COUNT 111 x10e3/uL (140-360); RED BLOOD COUNT 3.85 x10e6/uL (4.3-5.7); RED CELL DISTRIBUTION WIDTH 16.1 % (11.7-14.4)
[2019-08-10 07:13] LABS: ANION GAP 14.3 mmol/L (8-16); BLOOD UREA NITROGEN 6 mg/dL (7-26); BUN/CREATININE RATIO 7 (6-25); CARBON DIOXIDE 18 mmol/L (22-29); CHLORIDE 110 mmol/L (98-107); CREATININE, SERUM 0.84 mg/dL (0.72-1.25); EST GLOMERULAR FILTRATION RATE > 60 ML/MIN (60-); GLUCOSE 106 mg/dL (74-118); POTASSIUM 4.3 mmol/L (3.5-5.1); SODIUM 138 mmol/L (136-145)
[2019-08-10] MEDS: AMIODARONE HCL 200 MG TAB PO SCH ×2 (09:00→09:25)
[2019-08-10] MEDS: DILTIAZEM HCL 180 MG CAP ER PO SCH ×2 (09:00→09:25)
[2019-08-10] MEDS: FAMOTIDINE 20 MG/2 ML VIAL IV SCH ×2 (09:24→20:52)
[2019-08-10] MEDS: PIPERACILLIN/TAZO 2.25 GM 50 ML IV SCH ×2 (09:25)
[2019-08-10 09:47] LABS: ANISOCYTOSIS SLIGHT; EOSINOPHILS % (MANUAL) 16 % (0-7); LYMPHOCYTES % (MANUAL) 17 % (19-48); MONOCYTES % (MANUAL) 4 % (3.4-9.0); NEUTROPHILS % (MANUAL) 63 % (40-74); PLATELET ESTIMATE SLIGHTLY DECREASED; PLATELET MORPHOLOGY COMMENT NORMAL; RBC MORPHOLOGY COMMENT NORMAL
[2019-08-10] MEDS: QUETIAPINE FUMARATE 25 MG TAB PO SCH ×3 (10:10→20:52)
--- NOTE | 2019-08-10 14:51 | NUR ---
Nutrition Screen Note RD Recommendation for Physician: - As feasible, ADAT to goal of Mechanical Soft or texture per MORGUE TECHNICIAN Plan of Care: RD following, monitoring for tolerance and adequacy Nutrition reason for involvement: DX: CHF Primary Diagnose(s): CHF, dementia, hematuria PMH: alzheimer's dementia, acid reflux, hyperlipidemia, afib, nephrolithiasis, AAA repair Ht: 69 in Wt: 161 lb BMI: 23.8 kg/m2 IBW: [address] Assessment: (08/09) 89 YOM admitted for hematuria with CHF and dementia. Pt seen today per dx screen. Pt confused and combative, hx obtained from family member at bedside. She reports pt with good appetite and intake LEPIDOPTERIST and states that he has some difficulty chewing some foods due to poor dentition, no difficulties swallowing. She reports UBW of 163# 1-2 months ago, no wt loss noted. No reported N/V/C/D. Family with no questions or concerns at time of visit. RN reports pt tolerating CLD, intake dependent on mentation. Chart reviewed. Labs and meds reviewed. Will continue to monitor. Current Diet: clear liquids Malnutrition Evaluation (08/10/19) The patient does not meet criteria for a specified degree of malnutrition at this time. Will re-evaluate at follow-up as appropriate. Diet Education Needs Assessment: Diet education not indicated. Diet tolerance: tolerating CLD Nutrition Care Level: low Signed: Senait Boland RD, LD, [facility]
--- NOTE | 2019-08-10 15:10 | Progress Note ---
DATE: 08/10/2019 Medicine Progress Note SUBJECTIVE: The patient is calm right now. He was combative overnight. He is on IV Haldol. He is also on some scheduled Seroquel dose as well as p.r.n. Seroquel. PHYSICAL EXAMINATION: VITAL SIGNS: Temperature is 98.5, pulse 86, respiratory rate is 18, blood pressure 137/81, and pulse ox 100 % on room air. GENERAL: Not in acute distress. He is at baseline demented. PULMONARY: Clear to auscultation bilaterally. No wheezing, no rales, no rhonchi, no crackles appreciated. CARDIOVASCULAR: Positive S1 and S2. No murmurs, rubs, or gallops appreciated. ABDOMEN: Soft, nondistended, and nontender to palpation. Bowel sounds present. MUSCULOSKELETAL: He is at baseline dementia. NEUROLOGIC: Baseline dementia. SKIN: Intact. Warm to touch. Good cap refill. PSYCHIATRIC: Baseline dementia. EXTREMITIES: No edema. Good range of motion throughout. LABORATORY DATA: Show white count 5.7, hemoglobin 10.4, hematocrit is 37, and platelets of 111. Chemistry; sodium 138, potassium 4.3, chloride 110, bicarb 18, anion gap of 14, BUN is 6, creatinine is 0.84, and calcium is 9. Troponins were all negative. Coronavirus PCR is pending. Urine culture shows E. coli pansensitive. Blood cultures, no growth to date. IMAGING STUDIES: Nothing new. IMPRESSION: 1. Nephrolithiasis with underlying hematuria. 2. Atrial fibrillation, on anticoagulation. 3. Mild rhabdomyolysis. 4. Community-acquired pneumonia. 5. Urinary tract infection Escherichia coli. 6. Baseline dementia with behavioral disturbances. 7. Hypertension. 8. DNR/DNI as per patient's wishes on his will, now placed in the chart. PLAN: At this time, hemoglobin is stable at 10.4. The patient will need cystoscopy and possible lithotripsy later this week. I spoke with Cardiology. He cleared the patient for possible intervention needed. Continue with IV antibiotics. Urine cultures noted to be E. coli. Change Zosyn to IV Rocephin. As for his dementia and behavioral disturbances, he is on Seroquel and p.r.n. Haldol, which seems to have helped tremendously. Psychiatry is following very closely. He is on a heart healthy diet. REBECA ash for prophylaxis. Consultants: Cardiology, Urology, and Psychiatry. I spoke with the patient's daughter at bedside with the nursing staff present, in which I read the patient's living will, which states that he wants to be DNR/DNI. At this time, I did place a DNR/DNI order in the computer and also put a bracelet on his right wrist. I have discussed this with the daughter and this is the wishes that he wanted and that is the wishes that she wants as well. At this time, all orders have been placed in the computer. I have discussed this with the nursing staff and the patient's daughter at bedside and his living will was in the chart. MD CORTEZ Hall/NIYAL /[id number]
--- NOTE | 2019-08-10 15:21 | Progress Note ---
DATE: Cardiology Progress Note SUBJECTIVE: The patient has dementia. Cannot obtain review of systems. No events. OBJECTIVE: VITAL SIGNS: Temperature is 98.5, heart rate is 86, respirations are 18, blood pressure is 137/81, oxygen saturation 100% on room air. GENERAL: He is an elderly man, mildly agitated. CARDIOVASCULAR: Regular rate and rhythm. LUNGS: Clear to auscultation. ABDOMEN: Soft, nontender, nondistended. EXTREMITIES: No edema. CARDIOVASCULAR MEDICATIONS: Reviewed. LABORATORY DATA: Reviewed. Hemoglobin is 10.4. Creatinine is 0.84. IMPRESSION: 1. Nephrolithiasis. 2. Hematuria. 3. Paroxysmal atrial fibrillation. 4. Mild aortic stenosis. 5. Dementia. 6. Hypertension. RECOMMENDATIONS: Continue to hold anticoagulation. His rate is controlled on diltiazem and amiodarone. Echocardiogram performed at an outside facility was reviewed and showed normal ejection fraction with mild aortic stenosis. The patient may proceed with any surgical procedures without any further cardiac interventions. Otoniel Estevez DO BM/MODL /[id number]
--- NOTE | 2019-08-10 15:30 | Progress Note ---
DATE: 08/10/2019 SUBJECTIVE: The patient is evaluated and events noted. The patient is in the room. He is sleeping. Apparently, he received p.r.n. medication last night. Daughter who is in the room as well as a sitter reports the patient has not been sleeping for the last few days. He has been agitated last night. He is getting his medication inputting. No major side effects seen or reported. Discussed with the daughter. She agrees with current plan for oral medication to be increased for agitation. ASSESSMENT: 1. Unspecified psychosis. 2. Unspecified dementia with behavior disturbance. PLAN: 1. Continue Aricept 10 mg p.o. at bedtime. 2. Continue with Haldol 2 mg IM q.6 hours p.r.n. 3. Continue Seroquel 25 mg p.o. q.6 hours p.r.n. 4. Increase Seroquel from 25 mg p.o. b.i.d. to 50 mg p.o. at bedtime and 25 mg p.o. daily. 5. Monitor for agitation. 6. Discuss with family members. Dictated by Yenifer Dotson PA-C MD KYARA ChaidezV/LESTER /[id number]
[2019-08-10] MEDS: CEFTRIAXONE SOD 1 GM/NS 50 ML 50 ML IV SCH (15:35)
[2019-08-10] MEDS: SIMVASTATIN 40 MG TAB PO SCH (20:52)
[2019-08-10] MEDS: DONEPEZIL HCL 5 MG TAB PO SCH (20:52)
[2019-08-11] VITALS (13 sets, daily range): BP systolic 114–138; BP diastolic 72–92
[2019-08-11] MEDS: D5NS/KCL 20MEQ 1,000 ML IV SCH ×2 (02:42→14:01)
[2019-08-11 05:15] LABS: BASOPHILS # (AUTO) 0.1 (0.0-0.1); BASOPHILS % 0.7 % (0.0-1.0); EOSINOPHILS % 17.6 % (0.0-6.0); HEMATOCRIT 37.6 % (38.2-49.6); HEMOGLOBIN 11.7 g/dL (14.0-18.0); LYMPHOCYTES % 9.3 % (18.0-39.1); MEAN CORPUSCULAR HEMOGLOBIN 26.8 pg (28-32); MEAN CORPUSCULAR HGB CONC 31.1 g/dL (31-35); MEAN CORPUSCULAR VOLUME 86.2 fL (81-99); MONOCYTES # (AUTO) 0.8 (0.2-0.8); MONOCYTES % 7.3 % (4.4-11.3); NEUTROPHILS # (AUTO) 7.2 (2.1-6.9); NEUTROPHILS % 64.7 % (38.7-80.0); PLATELET COUNT 214 x10e3/uL (140-360); RED BLOOD COUNT 4.36 x10e6/uL (4.3-5.7); RED CELL DISTRIBUTION WIDTH 15.8 % (11.7-14.4)
[2019-08-11 05:27] LABS: ANION GAP 12.1 mmol/L (8-16); BLOOD UREA NITROGEN 6 mg/dL (7-26); BUN/CREATININE RATIO 7 (6-25); CALCIUM 9.3 mg/dL (8.4-10.2); CARBON DIOXIDE 21 mmol/L (22-29); CHLORIDE 110 mmol/L (98-107); CREATININE, SERUM 0.88 mg/dL (0.72-1.25); EST GLOMERULAR FILTRATION RATE > 60 ML/MIN (60-); GLUCOSE 110 mg/dL (74-118); POTASSIUM 4.1 mmol/L (3.5-5.1); SODIUM 139 mmol/L (136-145)
--- NOTE | 2019-08-11 07:10 | NUR ---
Bedside report and walking round completed with on coming nurse. Patient in bed with call light within reach. Sitter at bedside and restraints in place.
[2019-08-11] MEDS: DILTIAZEM HCL 180 MG CAP ER PO SCH (09:00)
[2019-08-11] MEDS: AMIODARONE HCL 200 MG TAB PO SCH (09:00)
[2019-08-11] MEDS: FAMOTIDINE 20 MG/2 ML VIAL IV SCH ×2 (09:00→20:16)
[2019-08-11] MEDS: QUETIAPINE FUMARATE 25 MG TAB PO SCH ×2 (09:00→20:16)
[2019-08-11] MEDS ORDERED: IOPAMIDOL 300MG/ML 50ML INFUS..BTL IV ONE (11:43)
[2019-08-11] MEDS ORDERED: B&O 60MG R/S 60 MG SUPP PR ONE (11:43)
[2019-08-11] MEDS ORDERED: B&O 60MG R/S 60 MG SUPP PR PRN (12:45)
[2019-08-11] MEDS: CEFTRIAXONE SOD 1 GM/NS 50 ML 50 ML IV SCH (14:01)
[2019-08-11] MEDS: ACETAMINOPHEN/CODEINE 300MG - 30MG TAB PO PRN (17:29)
[2019-08-11] MEDS: QUETIAPINE FUMARATE 25 MG TAB PO PRN (17:29)
[2019-08-11] MEDS ORDERED: ONDANSETRON HCL INJ 2MG/ML 2ML 2 MG/ML VIAL ONE (18:21)
[2019-08-11] MEDS ORDERED: SEVOFLURANE INHAL SOLN 250 ML PEN BTL ONE (18:21)
[2019-08-11] MEDS ORDERED: PROPOFOL IV EMULSION 10 MG/ML 20 ML VIAL ONE (18:21)
[2019-08-11] MEDS ORDERED: ETOMIDATE 2 MG/ML 10 ML INJ IV ONE (18:21)
[2019-08-11] MEDS ORDERED: LIDOCAINE HCL 2% LOCAL INJ 5 ML SDV VIAL INJ ONE (18:21)
[2019-08-11] MEDS ORDERED: DEXAMETHASONE SOD PHOS INJ 4 MG/ML VIAL ONE (18:21)
--- NOTE | 2019-08-11 18:40 | NUR ---
ASSUMED CARE FOR THIS PATIENT THIS AM. THE PATIENT HAD A SITTER AND RESTRAINTS SO I STOPPED THE RESTRAINTS AND APPROPRIATELY PREPARED THE PATIENT FOR DR. VELAZQUEZ'S PROCEDURE THIS MORNING. THE PATIENT IS URINATING IN A DIAPER AND HAS COMPLAINED OF PAIN THIS EVENING ONLY. TYLENOL WITH CODIENE AND SEROQUEL HAVE BEEN KEEPING THE PATIENT CALM. THE PATIENTS DAUGHTER HAS BEEN HERE ALL SHIFT AND SHE WAS UPDATED ON THE PATIENTS CONDITION. DR. VELAZQUEZ SPOKE WITH THE DAUGHTER OVER THE PHONE AND SHE HAS BEEN UPDATED ON THE PROCEDURE. THE SITTER HAS BEEN DISCONTINUED ALONG WITH THE RESTRAINTS. CONTINUE IV FLUID AND MONITOR FLUID AND LUNG SOUNDS. THE PATIENT HAS A LOOSE PRODUCTIVE COUGH.
[2019-08-11] MEDS: MELATONIN 5 MG TABLET PO PRN (20:16)
[2019-08-11] MEDS: SIMVASTATIN 40 MG TAB PO SCH (20:16)
[2019-08-11] MEDS: DONEPEZIL HCL 5 MG TAB PO SCH (20:16)
[2019-08-11] MEDS: TAMSULOSIN HCL 0.4 MG CAP PO SCH (20:16)
[2019-08-12] VITALS (9 sets, daily range): BP systolic 101–131; BP diastolic 62–84
--- NOTE | 2019-08-12 00:37 | Progress Note ---
DATE: 08/11/2019 Medicine Progress Note SUBJECTIVE: The patient underwent cystoscopy today with ureteral stent placement by Urology. The patient was doing well postprocedurally. I evaluated him postprocedurally with the nursing staff. He is currently doing well. OBJECTIVE: VITAL SIGNS: Temperature is 98.8, pulse 80, respiratory rate is 18, blood pressure 124/78, pulse ox 96% on room air. GENERAL: Not in acute distress. He is alert, oriented x1, baseline demented. HEENT: Head is normocephalic, atraumatic. Eyes; pupils are reactive to light bilaterally. NECK: Supple. Good range of motion. PULMONARY: Clear to auscultation bilaterally. No wheezing, rales, or rhonchi. No crackles appreciated. CARDIOVASCULAR: Positive S1, S2. No murmurs, rubs, or gallops appreciated. ABDOMEN: Soft, nondistended, tender to palpation. Bowel sounds present. MUSCULOSKELETAL: Strength is 5/5 throughout. NEUROLOGICAL: Baseline dementia. SKIN: Intact, warm to touch. Good cap refill. PSYCHIATRIC: Baseline dementia. EXTREMITIES: No edema. Good range of motion. LABORATORY FINDINGS: White count was 11.1, hemoglobin 11.7, hematocrit 37.6, platelets of 214. Chemistry; sodium 139, potassium 4.1, chloride 110, bicarb 29, anion gap of 12, BUN 6, creatinine 0.88, calcium is 9.3. Dean virus PCR was nondetected. MICROBIOLOGY: Urine cultures noted to be Escherichia coli, pansensitive. Blood cultures, no growth today. IMAGING STUDIES: Nothing new. IMPRESSION: 1. Nephrolithiasis with hematuria, status post cystoscopy with retrograde pyelogram with a left ureteral stent placement performed by Urology 08/11/2019. 2. Atrial fibrillation, now anticoagulation held. 3. Rhabdomyolysis-resolved. 4. Community-acquired pneumonia. 5. Escherichia coli urinary tract infection. 6. Baseline dementia with behavioral disturbances. 7. Hypertension. 8. Do not resuscitate/do not intubate. PLAN: At this time, the patient underwent cystoscopy, had a left ureteral stent placed. Continue with IV antibiotics, IV fluid hydration, and pain control. Urology, Cardiology are all following. We will monitor the patient throughout the weekend and once he has been cleared by Urology, could potentially be discharged to home. Psychiatry is monitoring his overall mental state. As for his anticoagulation, he will likely be discharged with no anticoagulation due to underlying hematuria. We will continue with DNR/DNI as per family and daughter's wishes and the patient's wishes. Consultants involved Cardiology, Urology, and Psychiatry. MD CORTEZ Hall/MODEve /[id number]
[2019-08-12] MEDS: QUETIAPINE FUMARATE 25 MG TAB PO PRN ×2 (00:41→16:55)
[2019-08-12] MEDS: ACETAMINOPHEN/CODEINE 300MG - 30MG TAB PO PRN (00:42)
[2019-08-12] MEDS: D5NS/KCL 20MEQ 1,000 ML IV SCH ×2 (04:22→17:50)
[2019-08-12 05:51] LABS: BASOPHILS % 0.2 % (0.0-1.0); HEMATOCRIT 35.1 % (38.2-49.6); HEMOGLOBIN 10.8 g/dL (14.0-18.0); LYMPHOCYTES # (AUTO) 0.6 (1.0-3.2); LYMPHOCYTES % 5.3 % (18.0-39.1); MEAN CORPUSCULAR HEMOGLOBIN 26.7 pg (28-32); MEAN CORPUSCULAR HGB CONC 30.8 g/dL (31-35); MEAN CORPUSCULAR VOLUME 86.7 fL (81-99); MONOCYTES # (AUTO) 0.8 (0.2-0.8); MONOCYTES % 7.4 % (4.4-11.3); NEUTROPHILS # (AUTO) 9.2 (2.1-6.9); NEUTROPHILS % 86.6 % (38.7-80.0); PLATELET COUNT 198 x10e3/uL (140-360); RED BLOOD COUNT 4.05 x10e6/uL (4.3-5.7); RED CELL DISTRIBUTION WIDTH 15.9 % (11.7-14.4)
[2019-08-12 06:05] LABS: ANION GAP 11.7 mmol/L (8-16); BLOOD UREA NITROGEN 12 mg/dL (7-26); BUN/CREATININE RATIO 11 (6-25); CARBON DIOXIDE 19 mmol/L (22-29); CHLORIDE 112 mmol/L (98-107); CREATININE, SERUM 1.07 mg/dL (0.72-1.25); EST GLOMERULAR FILTRATION RATE > 60 ML/MIN (60-); GLUCOSE 123 mg/dL (74-118); POTASSIUM 4.7 mmol/L (3.5-5.1); SODIUM 138 mmol/L (136-145)
[2019-08-12] MEDS: FAMOTIDINE 20 MG/2 ML VIAL IV SCH ×2 (08:20→19:56)
[2019-08-12] MEDS: DILTIAZEM HCL 180 MG CAP ER PO SCH (08:21)
[2019-08-12] MEDS: QUETIAPINE FUMARATE 25 MG TAB PO SCH ×2 (08:21→19:56)
[2019-08-12] MEDS: AMIODARONE HCL 200 MG TAB PO SCH (08:21)
[2019-08-12] MEDS: FINASTERIDE 5 MG TAB PO SCH (08:21)
[2019-08-12] MEDS: CEFTRIAXONE SOD 1 GM/NS 50 ML 50 ML IV SCH (15:04)
--- NOTE | 2019-08-12 16:05 | Progress Note ---
DATE: 08/12/2019 Medicine Progress Note SUBJECTIVE: The patient is doing well. He is eating his lunch. I spoke with the daughter at bedside. She reports he is doing very well today with no issues. PHYSICAL EXAMINATION: VITAL SIGNS: Temperature is 96.9, pulse 77, respiratory rate is 18, blood pressure 102/72, and pulse ox 99% on room air. GENERAL: Not in acute distress. He is alert, awake and oriented x1, at baseline. PULMONARY: Clear to auscultation bilaterally. No wheezing, no rales, no rhonchi, no crackles appreciated. CARDIOVASCULAR: Positive S1 and S2. No murmurs, rubs, or gallops appreciated. ABDOMEN: Soft, nondistended, and nontender to palpation. Bowel sounds present. MUSCULOSKELETAL: Unable to assess. NEUROLOGIC: Unable to assess. There is baseline dementia. SKIN: Intact. Warm to touch. Good cap refill. EXTREMITIES: No edema. Good range of motion throughout. LABORATORY DATA: White count 10.6, hemoglobin 10, hematocrit is 35, and platelets of 190. Chemistry; sodium 138, potassium 4.7, chloride 112, bicarb 19, anion gap of 11, BUN is 12, and creatinine is 1. MICROBIOLOGY: Urine cultures were noted. Blood cultures, no growth to date. IMAGING STUDIES: Nothing new. IMPRESSION: 1. Nephrolithiasis with hematuria, status post cystoscopy with retrograde pyelogram with left ureteral stent placement performed by Urology on 08/11/2019. 2. Atrial fibrillation, off anticoagulation right now. 3. Rhabdomyolysis-resolved. 4. Community-acquired pneumonia, on antibiotics. 5. Escherichia coli urinary tract infection. 6. Baseline dementia with behavioral disturbances. 7. Hypertension. 8. Do not resuscitate/do not intubate. PLAN: At this time, I did read Urology's note. They would like to start him possibly tomorrow on anticoagulation for his underlying atrial fibrillation. He may be discharged soon once Urology has cleared the patient. He is eating well. According to the daughter, he is at his baseline. We will continue with the same plan of care. Psychiatry is monitoring for his overall mental state. IV antibiotics. He is DNR/DNI as per patient's wishes. I spoke with the daughter at bedside. Consultants involved Cardiology, Urology, and Psychiatry. MD CORTEZ Hall/LESTER /[id number]
--- NOTE | 2019-08-12 19:30 | NUR ---
received report from day nurse. patient is resting in the bed. bed is in lowest position and bed alarm is on. will continue to monitor patient.
[2019-08-12] MEDS: MELATONIN 5 MG TABLET PO PRN (19:56)
[2019-08-12] MEDS: DONEPEZIL HCL 5 MG TAB PO SCH (19:56)
[2019-08-12] MEDS: TAMSULOSIN HCL 0.4 MG CAP PO SCH (19:56)
[2019-08-12] MEDS: SIMVASTATIN 40 MG TAB PO SCH (19:56)
[2019-08-12] MEDS: HALOPERIDOL LACTATE 5 MG/ML VIAL IM PRN (22:10)
[2019-08-13] MEDS: QUETIAPINE FUMARATE 25 MG TAB PO PRN (01:48)
[2019-08-13] MEDS: ACETAMINOPHEN/CODEINE 300MG - 30MG TAB PO PRN (01:48)
[2019-08-13 04:35] VITALS: BP 126/69
--- NOTE | 2019-08-13 06:36 | NUR ---
patient is resting comfortably in the bed. bed is in lowest position and call light is within reach.
[2019-08-13] MEDS: D5NS/KCL 20MEQ 1,000 ML IV SCH (07:10)
[2019-08-13 07:45] VITALS: BP 115/84
[2019-08-13] MEDS: FAMOTIDINE 20 MG/2 ML VIAL IV SCH (08:13)
[2019-08-13] MEDS: FINASTERIDE 5 MG TAB PO SCH (08:14)
[2019-08-13] MEDS: DILTIAZEM HCL 180 MG CAP ER PO SCH (08:14)
[2019-08-13] MEDS: AMIODARONE HCL 200 MG TAB PO SCH (08:14)
[2019-08-13] MEDS: QUETIAPINE FUMARATE 25 MG TAB PO SCH (08:14)
--- NOTE | 2019-08-13 09:51 | NUR ---
RECEIVED REPORT FROM STANTON HAN RN.
[2019-08-13 10:07] VITALS: BP 115/84
[2019-08-13 10:35] VITALS: BP 108/67
[2019-08-13 12:06] VITALS: BP 108/67
[2019-08-13] MEDS ORDERED: FINASTERIDE5 MG PO (13:36)
[2019-08-13] MEDS ORDERED: ASPIRIN325 MG PO (13:36)
[2019-08-13] MEDS ORDERED: FLOMAX0.4 MG PO (13:37)
--- NOTE | 2019-08-13 14:03 | Progress Note ---
DATE: Cardiology Progress Note SUBJECTIVE: Cannot obtain review of systems as he has baseline dementia. OBJECTIVE: VITAL SIGNS: Temperature is 97.7, heart rate 65, respirations are 14, blood pressure is 108/67, oxygen saturation 98% on room air. GENERAL: He is an elderly man, mildly agitated. CARDIOVASCULAR: Regular rate and rhythm. LUNGS: Clear to auscultation. ABDOMEN: Soft, nontender, nondistended. EXTREMITIES: No edema. CARDIOVASCULAR MEDICATIONS: Reviewed. LABORATORY DATA: Reviewed. Hemoglobin is 10.8. TELEMETRY: Monitoring revealed sinus rhythm. ASSESSMENT: 1. Nephrolithiasis. 2. Hematuria. 3. Paroxysmal atrial fibrillation. 4. Mild aortic stenosis. 5. Dementia. 6. Unsteady gait. 7. Hypertension. PLAN: I had a long discussion today with the patient's daughter at the patient's bedside. We discussed whether or not the patient is safe to remain on anticoagulation. The patient is high risk for bleeding going forward giving his unsteady gait, recurrent falls, and recent hematuria. We discussed the risks, benefits, and alternatives of oral anticoagulation and the risks of coming off anticoagulation as well. The patient's daughter agrees to proceed with aspirin alone. Continue all other current cardiovascular medications including diltiazem and amiodarone. The patient is stable for discharge from a cardiovascular standpoint. DO GORDY Tam/MODL /[id number]
--- NOTE | 2019-08-13 14:05 | NUR ---
REMOVED PATIENTS IV. CATHETER TIP INTACT AND PRESSURE DRESSING APPLIED.
--- NOTE | 2019-08-13 14:09 | NUR ---
PATIENT DISCHARGED FROM FACILITY. PATIENT GATHERED ALL PERSONAL BELONGINGS, DISCHARGE INSTRUCTIONS, AND FOLLOW UP INFORMATION. PATIENT LEFT UNIT IN WHEELCHAIR AND WENT HOME VIA PRIVATE AUTO. NO S/S OF DISTRESS LEAVING FACILITY.
--- NOTE | 2019-08-14 04:15 | Discharge Summary ---
FINAL DISCHARGE DIAGNOSES: 1. Nephrolithiasis with hematuria, status post cystoscopy with retrograde pyelogram with left ureteral stent placement performed by Urology on 08/11/2019. 2. Atrial fibrillation, now rate controlled -- discharged on full-dose aspirin as recommended by Cardiology. 3. Rhabdomyolysis -- resolved. 4. Community-acquired pneumonia -- resolved. 5. Escherichia coli urinary tract infection. 6. Baseline dementia with behavior disturbances. 7. Hypertension. 8. Do not resuscitate/do not intubate. CONSULTANTS: Urology and Cardiology. PHYSICAL EXAMINATION: VITAL SIGNS: Temperature is 97.7, pulse 65, respiratory rate is 14, blood pressure 108/67, pulse ox is 97%. He is on room air. LABORATORY DATA: Labs show white count 10.6, hemoglobin 10.8, hematocrit 35, platelets of 198. Coagulation PT 16, INR 1.2, APTT 31. Chemistry, Sodium 138, potassium 4.7, chloride 112, bicarb 19, anion gap of 11. BUN is 12, creatinine is 1.07, glucose is 123, calcium is 9. His magnesium was 1.9. His LFTs within normal range. Troponins were all negative. CK was 228. Albumin was 3. Lipase level was 48. LDL was 86. Urinalysis shows urine RBC greater than 50, trace leukocyte esterase, determined clarity. SEROLOGY: Coronavirus was negative. MICROBIOLOGY: Blood cultures were negative. Urine culture was positive for E. coli. IMAGING STUDIES: CT abdomen and pelvis shows right ureteric calculus, partially obstructed multiple left renal calculi, possibly staghorn calculus with proximal ureteral calculus with partial obstruction. No bladder calculi. Bilateral lung infiltrate at the left lower lingular concerning for underlying pneumonia. Mediastinal lymphadenopathy noted, like to be reactive. Chest x-ray showed bilateral lung infiltrates of interstitial airspace type. Viral pneumonitis can not be ruled out. Could have atypical pulmonary edema as well and was treated accordingly. CT abdomen and pelvis shows a 2.4 nonobstructive left renal inferior pole staghorn calculus. Urinary bladder cystitis was noted with moderate prostatomegaly. Left lower lobe consolidative pneumonia in the setting of a large gastric hiatal hernia. There are some fibrotic pulmonary changes. Aortic valve and coronary artery calcification disease. [id number] compression fracture deformities of T12 through L5 mild canal stenosis at T12. CT chest includes the same thing as a CT abdomen and pelvis shows evidence of left lower lobe consolidative pneumonia as well as large sliding gastric hiatal hernia as well HOSPITAL COURSE: This is an 89-year-old male, who has severe dementia with behavioral disturbances, came into the ED by his daughter with underlying hematuria. UA was consistent with hematuria prompting Urology consultation. While here, Cardiology was consulted for cardiac clearance. The patient also has a history of atrial fibrillation and in which anticoagulation was discontinued. His heart rate was much improved and controlled. Cardiology had a long discussion with the patient's daughter about anticoagulation and they both agreed to full-dose aspirin 325 mg daily instead of anticoagulation. The patient is bed-bound at normal state, but the risk of hematuria is high with anticoagulation in which Cardiology and the daughter have agreed to just full-dose aspirin. Psychiatry was involved for his behavioral disturbances and he did much better with the adjustment of the antipsychotics. He was on Seroquel 25 daily in the morning and 50 at bedtime with much improvement. As per Urology, the patient did have underlying hematuria. He underwent status post cystoscopy with retrograde pyelogram with a left ureteral stent placed on 08/11/2019, by Urology. The patient did well postprocedurely with no complications. The Urology was okay to initiate anticoagulation at any time with followup in his office in one month time, but Cardiology would recommend only full-dose aspirin, which the daughter has agreed to. In relation to his rhabdomyolysis, it improved. He did have underlying E. coli UTI, was on IV antibiotics and discharged on oral Ceftin. His blood pressure was well managed and controlled. He was also being treated for probable community-acquired pneumonia, which he was on antibiotics and discharged on antibiotics as well. On discharge, the patient was doing well, back to baseline with no other issues. On the day of discharge, vital signs were stable and labs reviewed and stable. The patient is seen and evaluated and examined thoroughly on the day of discharge. No other complaints. The patient's daughter verbalized understanding and agrees to plan of care to follow up as an outpatient with PCP in 1 week, Urology in 3 to 4 weeks time, Cardiology in 2 weeks and follow up with Psychiatry in 2 to 3 weeks time. MEDICATIONS: See med reconciliation form. DISPOSITION: Home. CONDITION: Stable. DIET: Heart healthy. In the event of any worsening symptoms, the patient advised to come back to the ED for further evaluation. Discharge summary took greater than 35 minutes. The patient has been cleared for discharge by all consultants. The patient was stable prior to being discharged to home. MD CORTEZ Hall/LESTER /[id number]
--- NOTE | 2019-08-20 23:51 | Operative Report ---
DATE OF PROCEDURE: 08/11/2019 SURGEON: Graham Girard MD PREOPERATIVE DIAGNOSES: 1. Left nephrolithiasis. 2. Left hydronephrosis. 3. Hematuria. 4. Urinary tract infections. POSTOPERATIVE DIAGNOSES: 1. Left nephrolithiasis. 2. Left hydronephrosis. 3. Hematuria. 4. Urinary tract infections. OPERATIONS PERFORMED: Note: These were all staged procedures as part of multi-staged and multi-step process in managing the patient's urolithiasis. 1. Left-sided extracorporeal shockwave lithotripsy (separate procedure performed for nephrolithiasis). 2. Cystourethroscopy with bilateral ureteral catheterization and retrograde ureteropyelography (separate procedure performed to evaluate the upper tract in light of the hematuria and urinary tract infections). 3. Interpretation of retrograde ureteropyelography. 4. Supervision of fluoroscopy, no radiologist present. 5. Cystourethroscopy with insertion of left indwelling ureteral stent (separate procedure performed to relieve hydronephrosis). ANESTHESIA: General. COMPLICATIONS: None. CLINICAL SUMMARY: Juan Priest is an 89-year-old man. He has the above preoperative diagnoses. He was brought for the above procedures. He is medically optimized and the family agrees. Family is aware of the risks of bleeding, infection, injury to adjacent structures, need for additional procedures and elected to proceed. He also understands, he will have a temporary indwelling ureteral stent that requires followup and removal. He understood all these risks and elected to proceed. OPERATIVE PROCEDURE IN DETAIL: Informed consent was verified, Juan Priest was properly identified and taken to the operating room and placed on the lithotripsy table in supine position. Anesthesia was uneventfully begun. The patient's large left nephrolithiasis was localized with biplanar fluoroscopy. A total of 3000 shocks were delivered with excellent fragmentation noted. The patient was then carefully and gently repositioned in dorsal lithotomy position with all pressure points well padded. His genitalia were prepared and draped in usual sterile fashion. 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 We entered the patient's bladder. Panendoscopy revealed diffuse diverticula, but no suspicious lesions and no tumors. A ureteral catheter was used to cannulate each ureter and retrograde ureteropyelography was performed. With cystoscopic fluoroscopic guidance, a left-sided indwelling ureteral stent was then placed, it was coiled in the patient's kidneys as well as the patient's bladder. The retaining sutures cut short. Interpretation of retrograde ureteropyelography contrast was instilled in retrograde fashion bilaterally. There were multiple filling defects in the left kidney consistent with fragmented stones. There was J-hooking noted bilaterally. There was ureterectasis noted bilaterally. No suspicious mucosal lesions were identified. Unobstructed drainage was observed fluoroscopically on the right-hand side. The stent was in good position, coiled in the patient's kidneys as well as the patient's bladder at the end of the case. The patient's bladder was drained. The cystoscope was withdrawn. Belladonna and opium suppository were placed. The patient was uneventfully reversed from anesthesia and taken to the recovery in stable conditions. Plans will be to eventually return the patient to the operating room for a circumcision. At that point in time we will remove the infected stent, perform ureteroscopy and will be prepared to perform laser lithotripsy if needed. MD BINDU Petty/LESTER /[id number]
== END 2019-08-13 14:09 | disposition home or self-care (01) | DRG 659 ==
LOC: ER 13:50 → ERHOLD 16:50 → MED/SURG2 17:39 → IMCU 08-09 05:45 → MED/SURG 08-11 21:03
PROVIDERS: ADMIT Internal Medicine; ATTEND Internal Medicine
PROC: 0T768ZZ Dilation of Right Ureter, Via Natural or Artificial Opening Endoscopic (ICD-10-PCS; 2019-08-11)
PROC: BT141ZZ Fluoroscopy of Kidneys, Ureters and Bladder using Low Osmolar Contrast (ICD-10-PCS; 2019-08-11)
PROC: 0TC78ZZ Extirpation of Matter from Left Ureter, Via Natural or Artificial Opening Endoscopic (ICD-10-PCS; principal; 2019-08-11 12:00)
PROC: 0T778DZ Dilation of Left Ureter with Intraluminal Device, Via Natural or Artificial Opening Endoscopic (ICD-10-PCS; 2019-08-11 12:00)
DX: N13.2 Hydronephrosis with renal and ureteral calculous obstruction (principal); J18.9 Pneumonia, unspecified organism; M62.82 Rhabdomyolysis; F05 Delirium due to known physiological condition; F02.81 Dementia in other diseases classified elsewhere, unspecified severity, with behavioral disturbance; D68.32 Hemorrhagic disorder due to extrinsic circulating anticoagulants; Z79.01 Long term (current) use of anticoagulants; I10 Essential (primary) hypertension; B96.20 Unspecified Escherichia coli [E. coli] as the cause of diseases classified elsewhere; Z66 Do not resuscitate; I48.0 Paroxysmal atrial fibrillation; R26.9 Unspecified abnormalities of gait and mobility; I35.0 Nonrheumatic aortic (valve) stenosis; E78.5 Hyperlipidemia, unspecified; G30.9 Alzheimer's disease, unspecified; N50.0 Atrophy of testis; N28.1 Cyst of kidney, acquired; E87.6 Hypokalemia; N32.3 Diverticulum of bladder; T45.515A Adverse effect of anticoagulants, initial encounter; N39.0 Urinary tract infection, site not specified; N40.0 Benign prostatic hyperplasia without lower urinary tract symptoms
CPT/HCPCS: 36415; 50590; 71045; 71250; 74176; 74177; 80048; 80053; 80061; 81001; 82550; 82553; 83690; 83735; 83880; 84484; 85025; 85610; 85730; 87040; 87086; 87186; 87635; 93005; 96361; 99251; 99284; C1758; C2617; J0696; J1100; J1630; J2001; J2060; J2405; J2543; J3486; J7030; J7050; Q9967

== ENCOUNTER → 2019-09-29 | Day surgery (SDC) | payer MEDICARE, OTHER ==
[2019-09-26 13:43] LABS: BASOPHILS # (AUTO) 0.1 (0.0-0.1); BASOPHILS % 0.9 % (0.0-1.0); EOSINOPHILS # (AUTO) 1.5 (0.0-0.4); EOSINOPHILS % 15.3 % (0.0-6.0); HEMATOCRIT 34.8 % (38.2-49.6); HEMOGLOBIN 10.4 g/dL (14.0-18.0); LYMPHOCYTES # (AUTO) 1.3 (1.0-3.2); LYMPHOCYTES % 13.3 % (18.0-39.1); MEAN CORPUSCULAR HGB CONC 29.9 g/dL (31-35); MEAN CORPUSCULAR VOLUME 83.7 fL (81-99); MONOCYTES # (AUTO) 0.6 (0.2-0.8); MONOCYTES % 6.1 % (4.4-11.3); NEUTROPHILS # (AUTO) 6.2 (2.1-6.9); NEUTROPHILS % 64.1 % (38.7-80.0); PLATELET COUNT 326 x10e3/uL (140-360); RED BLOOD COUNT 4.16 x10e6/uL (4.3-5.7); RED CELL DISTRIBUTION WIDTH 16.4 % (11.7-14.4)
[2019-09-26 13:51] LABS: ANION GAP 11.6 mmol/L (8-16); CALCIUM 9.4 mg/dL (8.4-10.2); CREATININE, SERUM 1.26 mg/dL (0.72-1.25); POTASSIUM 3.6 mmol/L (3.5-5.1)
--- NOTE | 2019-09-26 14:41 | Diagnostic Imaging Report ---
EXAMINATION: CHEST 2 VIEWS INDICATION: Pre-operative COMPARISON: Chest CT 08/08/2019 FINDINGS: LINES/TUBES:None LUNGS:The lungs are moderately inflated. Biapical pleural parenchymal thickening/scarring. Prominent peripheral interstitial opacities correspond with underlying severe interstitial fibrosis on CT. No focal consolidation. PLEURA:No pleural effusion or pneumothorax. MEDIASTINUM:The cardiomediastinal silhouette appears unchanged in size and shape. Atherosclerotic calcifications of the thoracic aorta. Hiatal hernia. BONES/SOFT TISSUES:No acute osseous injury. ABDOMEN:No free air under the diaphragm. IMPRESSION: No focal pneumonia or pulmonary edema. 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 Hiatal hernia. Signed by: Kimberly Johnson MD on 09/26/2019 2:38 PM
--- NOTE | 2019-09-26 15:02 | Diagnostic Imaging Report ---
Exam: KUB - 2 views Indication: Preoperative Comparison: CT abdomen and pelvis of 08/08/2019 Findings: Left internal nephroureteral stent in place. 7 mm calcific density projecting over the medial right kidney may represent the ureteral calculus seen on 08/08/2019. Left lower pole renal calculi measure up to 7 mm. Additional calcific densities overlie the left proximal and mid ureter. Nonobstructive bowel gas pattern. No free air. Impression: Left internal nephroureteral stent in place. Left renal and ureteral calculi as above. 7 mm calcific density overlying the medial right renal silhouette may represent the proximal ureteral calculus seen on the prior CT. Signed by: Kimberly Johnson MD on 09/26/2019 2:58 PM
[~2019-09-29] MED LIST: ACETAMINOPHEN325 M1 PO; AMIODARONE HCL200 MG PO; ARICEPT5 MG PO; ASPIRIN325 MG PO; ATIVAN1 MG PO; B&O 60MG R/S 60 MG SUPP PR ONE; BUPIVACAINE HCL 0.5% INJ 30 ML VIAL INJ ONE; CARDIZEM CD180 MG PO; CEFTRIAXONE SOD 1 GM VIAL ONE; EPHEDRINE SULFATE INJ 50 MG/ML VIAL ONE; ETOMIDATE 2 MG/ML 10 ML INJ IV ONE; FENTANYL CITRATE/PF 100MCG/2 ML INJ ONE; FINASTERIDE5 MG PO; FLOMAX0.4 MG PO; GENTAMICIN 80MG/NS 100 ML 100 ML IV ONE; IOPAMIDOL 300MG/ML 50ML INFUS..BTL IV ONE; LIDOCAINE HCL 1% LOCAL INJ 20 ML VIAL ONE; LIDOCAINE HCL 2% LOCAL INJ 5 ML SDV VIAL INJ ONE; OMEPRAZOLE40 MG PO; ONDANSETRON HCL INJ 2MG/ML 2ML 2 MG/ML VIAL ONE; PREDNISONE5 MG PO; PROPOFOL IV EMULSION 10 MG/ML 20 ML VIAL ONE; SEVOFLURANE INHAL SOLN 250 ML PEN BTL ONE; SIMVASTATIN40 MG PO; TEMAZEPAM15 MG; TRAMADOL HCL 50 MG TAB ONE; XARELTO10 MG
[2019-09-29 17:00] VITALS: BP 127/68
--- NOTE | 2019-10-16 11:02 | Operative Report ---
DATE OF PROCEDURE: 09/29/2019 SURGEON: Graham Girard MD PREOPERATIVE DIAGNOSES: 1. Phimosis. 2. Left stent. 3. Left ureteral stone. POSTOPERATIVE DIAGNOSES: 1. Phimosis. 2. Left stent. 3. Left ureteral stone. OPERATION PERFORMED: 1. Circumcision. 2. Penile nerve block (separate procedure performed for postoperative pain control and not required for the actual performance of the surgery done under anesthesia). 3. Cystourethroscopy with complicated removal of left indwelling ureteral stent (separate procedure performed for the diagnosis of the stent done with separate scope). 4. Left ureteroscopy with holmium laser lithotripsy, extraction of stones and placement of stent (separate procedure performed for the obstructing ureterolithiasis). 5. Radiological services with supervision and interpretation of ureteroscopy. 6. Interpretation of retrograde ureteropyelography. 7. Supervision of fluoroscopy, no radiologist was present. ANESTHESIA: General. COMPLICATIONS: None. CLINICAL SUMMARY: Juan Priest an 89-year-old man with stone. He underwent prior stone procedure and ureteral stenting. He has severe phimosis. He is brought for the above procedures. He is aware of the risks of bleeding, infection, injury to adjacent structures, need for additional procedures, and elected to proceed. These procedures are staged procedures as part of multi-staged and multi-step process in managing the patient's urolithiasis. PROCEDURE IN DETAIL: Informed consent was verified. Juan Priest was properly identified, taken to the operating room, placed on the cystoscopy table in supine position. Anesthesia was uneventfully begun. The patient's genitalia were then shaved, prepared, and draped in usual sterile fashion. Marcaine without epinephrine was utilized to infiltrate subcutaneously circumferentially the base of the penis as well as in the region of the dorsal penile nerves. This was done for postoperative pain control and not required for the actual performance of surgery done under general anesthesia. A circumferential incision was made overlying the barreto of the glans penis. The foreskin was fully retracted and secondary incision made approximately 5 mm away from the barreto of the glans penis along the inner preputial skin. A sleeve circumcision was then performed. The foreskin removed. Pinpoint electrocautery was utilized to achieve hemostasis. The incision was then approximated with 4-0 chromic suture in running fashion with an excellent cosmetic result. The patient was then carefully gently repositioned in dorsal lithotomy position with all pressure points well padded. His genitalia were prepared and draped in usual sterile fashion. The cystoscope sheath with a visual obturator in place was atraumatically inserted into the patient's urethra. It was guided unremarkably to distal urethra through the normal sphincteric region into the prostate bed, which was significant for visually obstructing bilobar BPH with kissing lateral lobes. We entered the patient's bladder where there were severe trabeculations as well as diverticula. No suspicious mucosal lesions were identified. A guidewire was then placed alongside the left indwelling ureteral stent and guided to the level of the patient's kidney. The stent was then grasped completely, removed and discarded. The semi-rigid ureteroscope was then inserted alongside the guidewire and guided into the patient's left ureter. Stones were identified. They were grasped and they were extracted. The additional stone burden remained. Over the guidewire, we placed a flexible ureteroscopy sheath and guided it under fluoroscopic guidance to the more proximal ureter. The flexible ureteroscope was then placed through this, guided to two large stone burden. Holmium laser lithotripsy was performed in order to eliminate this large stone burden and pulverized into smaller fragments and multiple fragments were extracted. With cystoscopic fluoroscopic guidance, a left-sided indwelling ureteral stent was then placed, it was coiled in the patient's kidney as well as the patient's bladder. The retaining suture was cut short. The patient's bladder was drained. Cystoscope was withdrawn. Belladonna and opium suppository were placed revealing 40 g prostate, smooth and non-fluctuant without any nodules. The patient was then uneventfully reversed from anesthesia and taken to recovery room in stable condition after the nurses dressed his penis with loose-fitting Yuri over Vaseline gauze over bacitracin ointment. Plans will be to return the patient to the operating room for left ureteroscopy with holmium laser standby. Ongoing urological followup is a must. Graham Girard MD [place]/LESTER /[id number]
== END | disposition home or self-care (01) ==
LOC: OR 11:02
PROVIDERS: ATTEND Urology
DX: N47.1 Phimosis (principal); N20.1 Calculus of ureter; Z46.6 Encounter for fitting and adjustment of urinary device; N40.1 Benign prostatic hyperplasia with lower urinary tract symptoms; N13.8 Other obstructive and reflux uropathy; N32.89 Other specified disorders of bladder; N47.7 Other inflammatory diseases of prepuce; I11.0 Hypertensive heart disease with heart failure; I50.9 Heart failure, unspecified; I48.0 Paroxysmal atrial fibrillation; I44.0 Atrioventricular block, first degree; K21.9 Gastro-esophageal reflux disease without esophagitis; H91.90 Unspecified hearing loss, unspecified ear; G30.9 Alzheimer's disease, unspecified; F02.80 Dementia in other diseases classified elsewhere, unspecified severity, without behavioral disturbance, psychotic disturbance, mood disturbance, and anxiety; Z66 Do not resuscitate; Z88.1 Allergy status to other antibiotic agents; Z88.8 Allergy status to other drugs, medicaments and biological substances; Z01.812 Encounter for preprocedural laboratory examination; Z01.818 Encounter for other preprocedural examination; Z11.59 Encounter for screening for other viral diseases; Z79.82 Long term (current) use of aspirin; Z87.01 Personal history of pneumonia (recurrent); Z87.891 Personal history of nicotine dependence
CPT/HCPCS: 36415; 52356; 54161; 71046; 74018; 74420; 80048; 85025; 88300; 88304; C1766; C1769; C2617; J0696; J1580; J2001 ×2; J2405; J2704; J3010; Q9967; U0002